=== PATIENT | female | born 1950 | race American Indian/Alaskan Native ===

== ENCOUNTER 2016-10-07 13:29 | Emergency (ER) | payer OTHER, MEDICARE ==
[2016-10-07] MEDS ORDERED: Sodium Chloride 0.9% 10 ML Syringe FLUSH PRN (13:45)
--- NOTE | 2016-10-07 13:47 | EDM.PDOC ---
ED HPI GENERAL MEDICAL PROBLEM - General Stated Complaint: BLACKING OUT Time Seen by Provider: 10/07/16 13:45 Source of Information: Reports: Patient History Limitations: Reports: No Limitations - History of Present Illness INITIAL COMMENTS - FREE TEXT/NARRATIVE: 66 yo female presents with heart rhythm irregularity that causes her to feel faint. States that her heart is racing sometimes. Presents with irregular heart rate of 80s-115s. denies vomiting but c/o nausea. States that she woke this am with this at about 4am. Pt reports taking 2 doses of her Sotalol this am as well as her other medication. C/o having similar symptoms over the past few weeks however she did not want to be seen because she would be transferred to [place]. Refuses today to be transferred to [place] because she now has a job. Denies pain or shortness of breath currently. Onset: Today Onset Time: 04:00 Duration: Intermittent Worsens with: Reports: Movement Context: Reports: Activity Associated Symptoms: Reports: No Other Symptoms Treatments MANAGER LVN: Reports: Other Medication(s) (beta nilo) Right Upper Chest Pain Score (Numeric/FACES): 4 - Related Data Allergies Allergy/AdvReac Type Severity Reaction Status Date / Time codeine Allergy Cannot Verified 10/07/16 13:49 Remember Macrolide Antibiotics Allergy Cannot Verified 10/07/16 13:49 Remember Quinolones Allergy Cannot Verified 10/07/16 13:49 Remember Home Meds: Home Meds Albuterol Sulfate 1 dose INH Q4H PRN 08/30/14 [History] Albuterol [Proventil HFA] 2 puff INH Q4H PRN 08/30/14 [History] Alendronate Sodium [Alendronate] 1 tab PO WEEKLY 08/30/14 [History] Formoterol/Mometasone [Dulera 100 MCG/5 MCG] 2 puff INH BID 08/30/14 [History] Rivaroxaban [Xarelto] 1 tab PO DAILY 08/30/14 [History] Aclidinium [place] [Tudorza Pressair] 1 puff INH BID 02/28/16 [History] Fluticasone Propionate [Flonase] 1 spray NASBOTH ASDIRECTED 02/28/16 [History] Omeprazole 20 mg PO DAILY 02/28/16 [History] Simvastatin [Zocor] 10 mg PO DAILY 02/28/16 [History] Sotalol HCl [Sotalol] 80 mg PO BID 02/28/16 [History] diphenhydrAMINE [Benadryl] 50 mg PO ASDIRECTED 02/28/16 [History] Past Medical History HEENT History: Reports: Impaired Vision Other HEENT History: WEARS CORRECTIVE LENS Cardiovascular History: Reports: Afib, Heart Murmur, High Cholesterol Other Cardiovascular History: ABDOMINAL AORTIC ANEURYSM. PULMONARY HYPERTENSION. DIASTOLIC DYSFUNCTION. QT PROLONGATION. 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: Musculoskeletal History: Reports: Osteoporosis Neurological History: Reports: None Psychiatric History: Reports: None Endocrine/Metabolic History: Reports: Osteoporosis Hematologic History: Reports: None Immunologic History: Reports: None Oncologic (Cancer) History: Reports: None Dermatologic History: Reports: None - Past Surgical History Female Surgical History: Reports: Section Social & Family History - Tobacco Use Smoking Status *Q: Never Smoker Years of Tobacco use: 45 Packs/Tins Daily: 2 Month Tobacco Last Used: 03/17/2007 Second Hand Smoke Exposure: No - Alcohol Use Days Per Week of Alcohol Use: 0 - Recreational Drug Use Recreational Drug Use: No - Living Situation & Occupation Living situation: Reports: with Family Occupation: Employed ED ROS GENERAL - Review of Systems Review Of Systems: ROS reveals no pertinent complaints other than HPI. ED EXAM, GENERAL - Physical Exam Exam: See Below Exam Limited By: No Limitations General Appearance: Alert, WD/WN, No Apparent Distress Eye Exam: Bilateral Eye: Normal Inspection, PERRL Nose: Normal Inspection, Normal Mucosa, No Blood Throat/Mouth: Normal Inspection, Normal Lips, Normal Teeth, Normal Gums, Normal Oropharynx, Normal Voice, No Airway Compromise Head: Atraumatic, Normocephalic Neck: Normal Inspection, Supple, Non-Tender, Full Range of Motion Respiratory/Chest: No Respiratory Distress, Lungs Clear, Normal Breath Sounds, No Accessory Muscle Use, Chest Non-Tender Cardiovascular: Normal Peripheral Pulses, No Edema, No Gallop, No JVD, No Murmur , No Rub, Tachycardia, Irregularly Irregular Peripheral Pulses: 4+: Radial (L), Radial (R), Posterior Tibial (L), Posterior Tibial (R), Dorsalis Pedis (L), Dorsalis Pedis (R) GI/Abdominal: Normal Bowel Sounds, Soft, Non-Tender, No Organomegaly, No Distention, No Abnormal Bruit, No Mass Extremities: Normal Inspection, Normal Range of Motion, Non-Tender, Normal Capillary Refill, No Pedal Edema Neurological: Alert, Oriented, CN II-XII Intact, Normal Cognition, No Motor/ Sensory Deficits Skin Exam: Warm, Dry, Intact, Normal Color, No Rash Lymphatic: No Adenopathy Course - Vital Signs Last Recorded V/S: Last Vital Signs Temp 97.3 F 10/07/16 13:30 Pulse 121 H 10/07/16 15:15 Resp 16 10/07/16 13:30 BP 101/58 L 10/07/16 15:15 Pulse Ox 93 L 10/07/16 13:30 - Orders/Labs/Meds Orders: Active Orders 24 hr Category Date Time Status Cardiac Monitoring [RC] . DIRECTED Care 10/07/16 13:45 Active EKG Documentation Completion [RC] STAT Care 10/07/16 13:46 Active Sodium Chloride 0.9% [Normal Saline] 500 ml Med 10/07/16 14:30 Active IV .BOLUS Sodium Chloride 0.9% [Normal Saline] 500 ml Med 10/07/16 14:45 Active IV ASDIRECTED Sodium Chloride 0.9% [Saline Flush] Med 10/07/16 13:45 Active 10 ml FLUSH ASDIRECTED PRN Saline Lock Insert [OM.PC] Stat Oth 10/07/16 13:45 Ordered Medication Orders Sodium Chloride (Normal Saline) 500 mls @ 999 mls/hr IV .BOLUS DOTTIE Last Admin: 10/07/16 14:26 Dose: 999 mls/hr Sodium Chloride (Normal Saline) 500 mls @ 75 mls/hr IV ASDIRECTED DOTTIE Last Admin: 10/07/16 14:58 Dose: 75 mls/hr Sodium Chloride (Saline Flush) 10 ml FLUSH ASDIRECTED PRN PRN Reason: Keep Vein Open Last Admin: 10/07/16 14:00 Dose: 10 ml Labs: Laboratory Tests 10/07/16 10/07/16 10/07/16 Range/Units 13:49 13:49 13:49 WBC 9.1 (5.0-10.0) 10^3/uL RBC 4.41 (4.2-5.4) 10^6/uL Hgb 13.4 (12.0-16.0) g/dL Hct 40.8 (37.0-47.0) % MCV 92.5 (80-100) fL MCH 30.4 (27.0-34.0) pg MCHC 32.8 L (33.0-35.0) g/dL Plt Count 259 (150-450) 10^3/uL Neut % (Auto) 68.3 (42.2-75.2) % Lymph % (Auto) 21.4 (20.5-50.1) % [place] % (Auto) 8.1 H (2-8) % Eos % (Auto) 1.8 (1.0-3.0) % Baso % (Auto) 0.4 (0.0-1.0) % PT 11.5 (9.0-12.0) SEC INR 1.1 (0.9-1.2) Sodium 139 (135-145) mmol/L Potassium 4.2 (3.6-5.0) mmol/L Chloride 109 (101-111) mmol/L Carbon Dioxide 20.0 L (21.0-31.0) mmol/L Anion Gap 14.2 BUN 13 (7-18) mg/dL Creatinine 0.7 (0.6-1.3) mg/dL Est Cr Clr Drug Dosing 74.41 mL/min Estimated GFR (MDRD) > 60 Glucose 100 (74-105) mg/dL Calcium 9.2 (8.4-10.2) mg/dl Creatine Kinase (26-174) IU/L Creatine Kinase Index (0-2.4) % CK-MB (CK-2) (0.4-4.7) ng/mL Troponin I < 0.02 (0.00-0.02) ng/ml 10/07/16 Range/Units 13:49 WBC (5.0-10.0) 10^3/uL RBC (4.2-5.4) 10^6/uL Hgb (12.0-16.0) g/dL Hct (37.0-47.0) % MCV (80-100) fL MCH (27.0-34.0) pg MCHC (33.0-35.0) g/dL Plt Count (150-450) 10^3/uL Neut % (Auto) (42.2-75.2) % Lymph % (Auto) (20.5-50.1) % [place] % (Auto) (2-8) % Eos % (Auto) (1.0-3.0) % Baso % (Auto) (0.0-1.0) % PT (9.0-12.0) SEC INR (0.9-1.2) Sodium (135-145) mmol/L Potassium (3.6-5.0) mmol/L Chloride (101-111) mmol/L Carbon Dioxide (21.0-31.0) mmol/L Anion Gap BUN (7-18) mg/dL Creatinine (0.6-1.3) mg/dL Est Cr Clr Drug Dosing mL/min Estimated GFR (MDRD) Glucose (74-105) mg/dL Calcium (8.4-10.2) mg/dl Creatine Kinase 28 (26-174) IU/L Creatine Kinase Index 4.3 H (0-2.4) % CK-MB (CK-2) 1.20 (0.4-4.7) ng/mL Troponin I (0.00-0.02) ng/ml Meds: Medications Generic Name Dose Route Start Last Admin Trade Name Freq PRN Reason Stop Dose Admin Sodium Chloride 500 mls @ 999 mls/hr 10/07/16 14:30 10/07/16 14:26 Normal Saline IV 999 mls/hr .BOLUS DOTTIE Administration Sodium Chloride 500 mls @ 75 mls/hr 10/07/16 14:45 10/07/16 14:58 Normal Saline IV 75 mls/hr ASDIRECTED DOTTIE Administration Sodium Chloride 10 ml 10/07/16 13:45 10/07/16 14:00 Saline Flush FLUSH 10 ml ASDIRECTED PRN Administration Keep Vein Open Discontinued Medications Generic Name Dose Route Start Last Admin Trade Name Freq PRN Reason Stop Dose Admin Metoprolol Tartrate 5 mg 10/07/16 14:15 Lopressor IVPUSH 10/07/16 14:16 ONETIME ONE Metoprolol Tartrate 2.5 mg 10/07/16 15:12 10/07/16 15:15 Lopressor IVPUSH 10/07/16 15:13 2.5 mg ONETIME ONE Administration - Re-Assessments/Exams Free Text/Narrative Re-Assessment/Exam: 10/07/16 14:45 Lab reveals no acute cardiac injury. Patient with hypertension and metoprolol held currently until normotensive. IV fluids given. 10/07/16 15:12 Patient states that she doesnt feel her heart racing. Manual pulse check reveal heart rate of 70 however continues with irregularity. Hypotension resolved. 10/07/16 15:51 pulse remains around 60's- 70's and irregular. Normotensive at 111 systolically currenlty. Pt eating lunch with no nausea complaints. Will DC home Departure - Departure Time of Disposition: 15:52 Disposition: Home, Self-Care 01 Condition: Good Clinical Impression: Chronic a-fib Instructions: Atrial Fibrillation Forms: ED Department Discharge Additional Instructions: Continue to take your medication as prescribed. Follow up with your fresh food manager NICHOLAS for re-evaluation of you dosage. Return for any worsening symptoms. - My Orders Last 24 Hours: My Active Orders 10/07/16 13:45 Cardiac Monitoring [RC] . DIRECTED Sodium Chloride 0.9% [Saline Flush] 10 ml FLUSH ASDIRECTED PRN Saline Lock Insert [OM.PC] Stat 10/07/16 13:46 EKG Documentation Completion [RC] STAT 10/07/16 14:30 Sodium Chloride 0.9% [Normal Saline] 500 ml IV .BOLUS 10/07/16 14:45 Sodium Chloride 0.9% [Normal Saline] 500 ml IV ASDIRECTED - Assessment/Plan Last 24 Hours: My Active Orders 10/07/16 13:45 Cardiac Monitoring [RC] . DIRECTED Sodium Chloride 0.9% [Saline Flush] 10 ml FLUSH ASDIRECTED PRN Saline Lock Insert [OM.PC] Stat 10/07/16 13:46 EKG Documentation Completion [RC] STAT 10/07/16 14:30 Sodium Chloride 0.9% [Normal Saline] 500 ml IV .BOLUS 10/07/16 14:45 Sodium Chloride 0.9% [Normal Saline] 500 ml IV ASDIRECTED
[2016-10-07] MEDS ORDERED: Metoprolol Tartrate 5 MG/5 ML SDV IVPUSH ONE ×2 (14:15→15:12)
[2016-10-07 14:17] LABS: CHLORIDE,CL 109 mmol/L (101-111); SODIUM,NA 139 mmol/L (135-145)
--- NOTE | 2016-10-07 14:22 | CR ---
Clinical history: 66-year-old female chest pain Interpretation: Increased cardiac size since to April 2012 comparison film i.e. new. EKG? No cephalization of vascular flow, new signs of alveolar edema or dependent pleural fluid accumulati on. Chronic bullous change right lung apex and some lower lobe atelectasis but no new lung mass, hilar l ymphadenopathy or focal lobar pneumonia. No pneumothorax. CONCLUSION: Mild cardiomegaly. No current signs of heart failure or lobar pneumonia.
[2016-10-07] MEDS ORDERED: Sodium Chloride 0.9% 500 ML IV SCH ×2 (14:30→14:45)
[2016-10-07 15:17] VITALS: BP 101/58
--- NOTE | 2016-10-09 10:00 | EKG ---
10/07/2016 - CONSTANZA SAPP - EKG shows atrial fibrillation, rapid ventricular response. Heart rate is 109 per minute. [facility] /[id number]
== END 2016-10-07 17:22 | disposition home or self-care (01) ==
LOC: DL.ED 13:29
DX: I48.2 Chronic atrial fibrillation (principal); E78.00 Pure hypercholesterolemia, unspecified; K21.9 Gastro-esophageal reflux disease without esophagitis; J44.9 Chronic obstructive pulmonary disease, unspecified; M81.0 Age-related osteoporosis without current pathological fracture; Z88.8 Allergy status to other drugs, medicaments and biological substances; Z88.5 Allergy status to narcotic agent
CPT/HCPCS: 36415; 71010; 80048; 82550; 82553; 84484; 85025; 85610; 93005; 96365; 96366; 96375; 99285; J7040; J7050; J3490

== ENCOUNTER 2016-11-08 01:10 | Emergency (ER) | payer OTHER, MEDICARE ==
[2016-11-08] MEDS ORDERED: Metoprolol Tartrate 5 MG/5 ML SDV IVPUSH ONE (01:33)
[2016-11-08] MEDS ORDERED: Sodium Chloride 0.9% 1,000 ML IV ONE (01:36)
--- NOTE | 2016-11-08 01:39 | EDM.PDOC ---
ED HPI GENERAL MEDICAL PROBLEM - General Chief Complaint: Cardiovascular Problem Stated Complaint: NOT FEELING WELL Time Seen by Provider: 11/08/16 01:36 Source of Information: Reports: Patient History Limitations: Reports: No Limitations - History of Present Illness INITIAL COMMENTS - FREE TEXT/NARRATIVE: states everything started in 2008 from COPD then developed irreg heart was referred to Dr Astrid Lundberg with Rx and has yearly f/u next one next week. been ok till last month was here and given IV Rx problem went away but didn't want [facility] transfer. tonight developed palpitation sob some pain chest tightness & pain going up both jaws which she didn't have last time. Bilateral Lower Face Pain Score (Numeric/FACES): 3 - Related Data Allergies Allergy/AdvReac Type Severity Reaction Status Date / Time codeine Allergy Cannot Verified 11/08/16 01:37 Remember Macrolide Antibiotics Allergy Cannot Verified 11/08/16 01:37 Remember Quinolones Allergy Cannot Verified 11/08/16 01:37 Remember Home Meds: Home Meds Albuterol Sulfate 1 dose INH Q4H PRN 08/30/14 [History] Albuterol [Proventil HFA] 2 puff INH Q4H PRN 08/30/14 [History] Alendronate Sodium [Alendronate] 1 tab PO WEEKLY 08/30/14 [History] Formoterol/Mometasone [Dulera 100 MCG/5 MCG] 2 puff INH BID 08/30/14 [History] Rivaroxaban [Xarelto] 1 tab PO DAILY 08/30/14 [History] Aclidinium [place] [Tudorza Pressair] 1 puff INH BID 02/28/16 [History] Fluticasone Propionate [Flonase] 1 spray NASBOTH ASDIRECTED 02/28/16 [History] Simvastatin [Zocor] 10 mg PO DAILY 02/28/16 [History] Sotalol HCl [Sotalol] 80 mg PO BID 02/28/16 [History] diphenhydrAMINE [Benadryl] 50 mg PO ASDIRECTED 02/28/16 [History] Past Medical History HEENT History: Reports: Impaired Vision Other HEENT History: WEARS CORRECTIVE LENS Cardiovascular History: Reports: Afib, Heart Murmur, High Cholesterol Other Cardiovascular History: ABDOMINAL AORTIC ANEURYSM. PULMONARY HYPERTENSION. DIASTOLIC DYSFUNCTION. QT PROLONGATION. 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: Musculoskeletal History: Reports: Osteoporosis Neurological History: Reports: None Psychiatric History: Reports: None Endocrine/Metabolic History: Reports: Osteoporosis Hematologic History: Reports: None Immunologic History: Reports: None Oncologic (Cancer) History: Reports: None Dermatologic History: Reports: None - Past Surgical History Female Surgical History: Reports: Section Social & Family History - Tobacco Use Smoking Status *Q: Former Smoker Years of Tobacco use: 45 Packs/Tins Daily: 2 Used Tobacco, but Quit: Yes Month Tobacco Last Used: 03/17/2007 Second Hand Smoke Exposure: No - Caffeine Use Caffeine Use: Reports: Coffee, Soda - Alcohol Use Days Per Week of Alcohol Use: 0 - Recreational Drug Use Recreational Drug Use: No - Living Situation & Occupation Living situation: Reports: with Family Occupation: Employed ED ROS GENERAL - Review of Systems Review Of Systems: ROS reveals no pertinent complaints other than HPI. ED EXAM, GENERAL - Physical Exam Exam: See Below Exam Limited By: No Limitations General Appearance: Alert, WD/WN, No Apparent Distress, Other (upset) Ears: Hearing Grossly Normal Throat/Mouth: Normal Voice, No Airway Compromise Head: Atraumatic Neck: Non-Tender, Full Range of Motion Respiratory/Chest: No Respiratory Distress Cardiovascular: Irregularly Irregular GI/Abdominal: Soft, Non-Tender Neurological: Alert, Oriented, Normal Cognition, Normal Gait, No Motor/Sensory Deficits Psychiatric: Flat Affect Skin Exam: Warm, Dry, Normal Color Lymphatic: No Adenopathy Course - Vital Signs Last Recorded V/S: Last Vital Signs Temp 36.4 C 11/08/16 01:15 Pulse 94 11/08/16 03:03 Resp 20 11/08/16 03:03 BP 113/55 L 11/08/16 03:03 Pulse Ox 95 11/08/16 03:03 - Orders/Labs/Meds Orders: Active Orders 24 hr Category Date Time Status EKG 12 Lead [EKG Documentation Completion] [RC] STAT Care 11/08/16 01:26 Active Sodium Chloride 0.9% [Normal Saline] 1,000 ml Med 11/08/16 01:36 Active IV .BOLUS Medication Orders Sodium Chloride (Normal Saline) 1,000 mls @ 555 mls/hr IV .BOLUS ONE Stop: 11/08/16 03:24 Last Admin: 11/08/16 01:45 Dose: 555 mls/hr Labs: Laboratory Tests 11/08/16 11/08/16 Range/Units 01:20 01:20 WBC 8.1 (5.0-10.0) 10^3/uL RBC 4.45 (4.2-5.4) 10^6/uL Hgb 13.6 (12.0-16.0) g/dL Hct 40.7 (37.0-47.0) % MCV 91.5 (80-100) fL MCH 30.6 (27.0-34.0) pg MCHC 33.4 (33.0-35.0) g/dL Plt Count 257 (150-450) 10^3/uL Neut % (Auto) 54.3 (42.2-75.2) % Lymph % (Auto) 31.6 (20.5-50.1) % [place] % (Auto) 10.1 H (2-8) % Eos % (Auto) 3.5 H (1.0-3.0) % Baso % (Auto) 0.5 (0.0-1.0) % Sodium 141 (135-145) mmol/L Potassium 3.7 (3.6-5.0) mmol/L Chloride 108 (101-111) mmol/L Carbon Dioxide 22.0 (21.0-31.0) mmol/L Anion Gap 14.7 BUN 14 (7-18) mg/dL Creatinine 0.7 (0.6-1.3) mg/dL Est Cr Clr Drug Dosing 74.01 mL/min Estimated GFR (MDRD) > 60 BUN/Creatinine Ratio 20.00 Glucose 106 H (74-105) mg/dL Calcium 9.4 (8.4-10.2) mg/dl Total Bilirubin 0.8 (0.2-1.0) mg/dL AST 17 (10-42) IU/L ALT 14 (10-60) IU/L Alkaline Phosphatase 66 (42-121) IU/L Troponin I < 0.02 (0.00-0.02) ng/ml Total Protein 6.9 (6.7-8.2) g/dl Albumin 4.1 (3.2-5.5) g/dl Globulin 2.8 Albumin/Globulin Ratio 1.46 Meds: Medications Generic Name Dose Route Start Last Admin Trade Name Desean PRN Reason Stop Dose Admin Sodium Chloride 1,000 mls @ 555 mls/hr 11/08/16 01:36 11/08/16 01:45 Normal Saline IV 11/08/16 03:24 555 mls/hr .BOLUS ONE Administration Discontinued Medications Generic Name Dose Route Start Last Admin Trade Name Desean PRN Reason Stop Dose Admin Metoprolol Tartrate 2.5 mg 11/08/16 01:33 11/08/16 02:42 Lopressor IVPUSH 11/08/16 01:34 2.5 mg ONETIME ONE Administration - Re-Assessments/Exams Free Text/Narrative Re-Assessment/Exam: 11/08/16 02:25 re-exam;jaw pain gone but can still feel heart going irreg. 11/08/16 03:[address] Yap @ who kindly accepted Pt Departure - Departure Time of Disposition: 03:16 Disposition: DC/Tfer to Acute Hospital 02 Reason for Transfer *Q: Other Condition: Fair Clinical Impression: Palpitations, Atrial fibrillation with RVR Forms: Interfacility Transfer EMTALA - My Orders Last 24 Hours: My Active Orders 11/08/16 01:26 EKG 12 Lead [EKG Documentation Completion] [RC] STAT 11/08/16 01:36 Sodium Chloride 0.9% [Normal Saline] 1,000 ml IV .BOLUS - Assessment/Plan Last 24 Hours: My Active Orders 11/08/16 01:26 EKG 12 Lead [EKG Documentation Completion] [RC] STAT 11/08/16 01:36 Sodium Chloride 0.9% [Normal Saline] 1,000 ml IV .BOLUS
[2016-11-08 01:48] LABS: CHLORIDE,CL 108 mmol/L (101-111); SODIUM,NA 141 mmol/L (135-145)
[2016-11-08 03:04] VITALS: BP 113/55
[2016-11-08] MEDS ORDERED: Sodium Chloride 0.9% 1,000 ML IV SCH (03:45)
--- NOTE | 2016-11-11 09:27 | EKG ---
11/08/2016- CONSTANZA SAPP - EKG per my reading shows atrial fibrillation at the rate of 102. [facility] /[id number]
== END 2016-11-08 03:53 ==
LOC: DL.ED 01:10
DX: I48.91 Unspecified atrial fibrillation (principal); H54.7 Unspecified visual loss; E78.00 Pure hypercholesterolemia, unspecified; K21.9 Gastro-esophageal reflux disease without esophagitis; M81.0 Age-related osteoporosis without current pathological fracture; Z88.5 Allergy status to narcotic agent; Z88.8 Allergy status to other drugs, medicaments and biological substances; Z79.899 Other long term (current) drug therapy
CPT/HCPCS: 36415; 80053; 84484; 85025; 93005; 96361; 96374; 99285; J7030; J3490

== ENCOUNTER 2016-12-15 23:52 | Emergency (ER) | payer OTHER, MEDICARE ==
[2016-12-16] MEDS ORDERED: Aspirin 81 MG Tab.Chew PO ONE (00:18)
--- NOTE | 2016-12-16 00:22 | EDM.PDOC ---
ED HPI GENERAL MEDICAL PROBLEM - General Chief Complaint: Cardiovascular Problem Stated Complaint: HEART POUNDING Time Seen by Provider: 12/16/16 00:15 Source of Information: Reports: Patient History Limitations: Reports: No Limitations - History of Present Illness INITIAL COMMENTS - FREE TEXT/NARRATIVE: ED with c/o feeling like heart racing, had chest pain radiating to jaw on awakening at 2300. Quality: Reports: Ache, Dull, Sharp Associated Symptoms: Reports: Chest Pain, Shortness of Breath Head Pain Score (Numeric/FACES): 8 - Related Data Allergies Allergy/AdvReac Type Severity Reaction Status Date / Time codeine Allergy Cannot Verified 12/16/16 00:05 Remember Macrolide Antibiotics Allergy Cannot Verified 12/16/16 00:05 Remember Quinolones Allergy Cannot Verified 12/16/16 00:05 Remember Home Meds: Home Meds Albuterol Sulfate 1 dose INH Q4H PRN 08/30/14 [History] Albuterol [Proventil HFA] 2 puff INH Q4H PRN 08/30/14 [History] Alendronate Sodium [Alendronate] 1 tab PO WEEKLY 08/30/14 [History] Formoterol/Mometasone [Dulera 100 MCG/5 MCG] 2 puff INH BID 08/30/14 [History] Rivaroxaban [Xarelto] 1 tab PO DAILY 08/30/14 [History] Aclidinium [place] [Tudorza Pressair] 1 puff INH BID 02/28/16 [History] Fluticasone Propionate [Flonase] 1 spray NASBOTH ASDIRECTED 02/28/16 [History] Simvastatin [Zocor] 10 mg PO DAILY 02/28/16 [History] Sotalol HCl [Sotalol] 80 mg PO BID 02/28/16 [History] diphenhydrAMINE [Benadryl] 50 mg PO ASDIRECTED 02/28/16 [History] Magnesium 400 mg PO DAILY 12/16/16 [History] Past Medical History HEENT History: Reports: Impaired Vision Other HEENT History: WEARS CORRECTIVE LENS Cardiovascular History: Reports: Afib, Heart Murmur, High Cholesterol Other Cardiovascular History: ABDOMINAL AORTIC ANEURYSM. PULMONARY HYPERTENSION. DIASTOLIC DYSFUNCTION. QT PROLONGATION. 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: Musculoskeletal History: Reports: Osteoporosis Neurological History: Reports: None Psychiatric History: Reports: None Endocrine/Metabolic History: Reports: Osteoporosis Hematologic History: Reports: None Immunologic History: Reports: None Oncologic (Cancer) History: Reports: None Dermatologic History: Reports: None - Infectious Disease History Infectious Disease History: Reports: None - Past Surgical History Female Surgical History: Reports: Section Social & Family History - Family History Family Medical History: Noncontributory - Tobacco Use Smoking Status *Q: Never Smoker Years of Tobacco use: 45 Packs/Tins Daily: 2 Used Tobacco, but Quit: Yes Month Tobacco Last Used: 03/17/2007 Second Hand Smoke Exposure: No - Caffeine Use Caffeine Use: Reports: None - Alcohol Use Days Per Week of Alcohol Use: 0 - Recreational Drug Use Recreational Drug Use: No - Living Situation & Occupation Living situation: Reports: with Family Occupation: Employed ED ROS GENERAL - Review of Systems Review Of Systems: See Below Constitutional: Reports: No Symptoms HEENT: Reports: No Symptoms Respiratory: Reports: Shortness of Breath Cardiovascular: Reports: Chest Pain, Palpitations GI/Abdominal: Reports: No Symptoms : Reports: No Symptoms Musculoskeletal: Reports: No Symptoms Skin: Reports: No Symptoms Neurological: Reports: No Symptoms ED EXAM, GENERAL - Physical Exam Exam: See Below Exam Limited By: No Limitations General Appearance: Alert, Moderate Distress Eye Exam: Bilateral Eye: EOMI Nose: Normal Inspection Throat/Mouth: Normal Inspection Head: Atraumatic Neck: Normal Inspection, Non-Tender, Full Range of Motion. No: Carotid Bruit, Lymphadenopathy (L), Lymphadenopathy (R) Respiratory/Chest: No Respiratory Distress, Lungs Clear Cardiovascular: Tachycardia, Irregularly Irregular. No: JVD GI/Abdominal: Normal Bowel Sounds Extremities: Normal Inspection Neurological: Alert, Oriented, Normal Cognition Psychiatric: Normal Affect Skin Exam: Warm, Dry, Intact, Normal Color. No: Diaphoretic Course - Vital Signs Last Recorded V/S: Last Vital Signs Temp 97.2 F 12/16/16 02:15 Pulse 118 H 12/16/16 01:54 Resp 16 12/16/16 01:54 BP 89/60 L 12/16/16 01:54 Pulse Ox 100 12/16/16 01:54 - Orders/Labs/Meds Labs: Laboratory Tests 12/16/16 12/16/16 12/16/16 Range/Units 00:12 00:12 00:12 WBC 8.0 (5.0-10.0) 10^3/uL RBC 4.45 (4.2-5.4) 10^6/uL Hgb 13.5 (12.0-16.0) g/dL Hct 41.4 (37.0-47.0) % MCV 93.0 (80-100) fL MCH 30.3 (27.0-34.0) pg MCHC 32.6 L (33.0-35.0) g/dL Plt Count 284 (150-450) 10^3/uL Neut % (Auto) 73.1 (42.2-75.2) % Lymph % (Auto) 17.1 L (20.5-50.1) % [place] % (Auto) 8.1 H (2-8) % Eos % (Auto) 1.5 (1.0-3.0) % Baso % (Auto) 0.2 (0.0-1.0) % PT 9.6 (9.0-12.0) SEC INR 1.0 (0.9-1.2) Sodium 137 (135-145) mmol/L Potassium 4.3 (3.6-5.0) mmol/L Chloride 105 (101-111) mmol/L Carbon Dioxide 22.0 (21.0-31.0) mmol/L Anion Gap 14.3 BUN 18 (7-18) mg/dL Creatinine 0.7 (0.6-1.3) mg/dL Est Cr Clr Drug Dosing TNP Estimated GFR (MDRD) > 60 BUN/Creatinine Ratio 25.71 Glucose 135 H (74-105) mg/dL Calcium 9.2 (8.4-10.2) mg/dl Magnesium (1.8-2.5) mg/dL Total Bilirubin 1.1 H (0.2-1.0) mg/dL AST 18 (10-42) IU/L ALT 14 (10-60) IU/L Alkaline Phosphatase 66 (42-121) IU/L CK-MB (CK-2) (0.4-4.7) ng/mL Troponin I < 0.02 (0.00-0.02) ng/ml B-Natriuretic Peptide 325 H (0-100) pg/ml Total Protein 6.7 (6.7-8.2) g/dl Albumin 3.9 (3.2-5.5) g/dl Globulin 2.8 Albumin/Globulin Ratio 1.39 Urine Color (YELLOW) Urine Appearance (CLEAR) Urine pH (5.0-9.0) Ur Specific [place] (1.005-1.030) Urine Protein (NEGATIVE) Urine Glucose (UA) (NEGATIVE) Urine Ketones (NEGATIVE) Urine Occult Blood (NEGATIVE) Urine Nitrite (NEGATIVE) Urine Bilirubin (NEGATIVE) Urine Urobilinogen (0.2-1.0) mg/dL Ur Leukocyte Esterase (NEGATIVE) Urine RBC /HPF Urine WBC (0-5/HPF) /HPF Ur Epithelial Cells /HPF Urine Bacteria (0-FEW/HPF) /HPF 12/16/16 12/16/16 12/16/16 Range/Units 00:12 00:12 01:30 WBC (5.0-10.0) 10^3/uL RBC (4.2-5.4) 10^6/uL Hgb (12.0-16.0) g/dL Hct (37.0-47.0) % MCV (80-100) fL MCH (27.0-34.0) pg MCHC (33.0-35.0) g/dL Plt Count (150-450) 10^3/uL Neut % (Auto) (42.2-75.2) % Lymph % (Auto) (20.5-50.1) % [place] % (Auto) (2-8) % Eos % (Auto) (1.0-3.0) % Baso % (Auto) (0.0-1.0) % PT (9.0-12.0) SEC INR (0.9-1.2) Sodium (135-145) mmol/L Potassium (3.6-5.0) mmol/L Chloride (101-111) mmol/L Carbon Dioxide (21.0-31.0) mmol/L Anion Gap BUN (7-18) mg/dL Creatinine (0.6-1.3) mg/dL Est Cr Clr Drug Dosing Estimated GFR (MDRD) BUN/Creatinine Ratio Glucose (74-105) mg/dL Calcium (8.4-10.2) mg/dl Magnesium 2.2 (1.8-2.5) mg/dL Total Bilirubin (0.2-1.0) mg/dL AST (10-42) IU/L ALT (10-60) IU/L Alkaline Phosphatase (42-121) IU/L CK-MB (CK-2) 1.30 (0.4-4.7) ng/mL Troponin I (0.00-0.02) ng/ml B-Natriuretic Peptide (0-100) pg/ml Total Protein (6.7-8.2) g/dl Albumin (3.2-5.5) g/dl Globulin Albumin/Globulin Ratio Urine Color Light yellow (YELLOW) Urine Appearance Slightly cloudy (CLEAR) Urine pH 7.0 (5.0-9.0) Ur Specific [place] 1.010 (1.005-1.030) Urine Protein Negative (NEGATIVE) Urine Glucose (UA) Negative (NEGATIVE) Urine Ketones Negative (NEGATIVE) Urine Occult Blood Negative (NEGATIVE) Urine Nitrite Negative (NEGATIVE) Urine Bilirubin Negative (NEGATIVE) Urine Urobilinogen 0.2 (0.2-1.0) mg/dL Ur Leukocyte Esterase Negative (NEGATIVE) Urine RBC 0-5 /HPF Urine WBC 0-5 (0-5/HPF) /HPF Ur Epithelial Cells Many H /HPF Urine Bacteria Few (0-FEW/HPF) /HPF Meds: Medications Discontinued Medications Generic Name Dose Route Start Last Admin Trade Name Freq PRN Reason Stop Dose Admin Aspirin 324 mg 12/16/16 00:18 12/16/16 00:23 Aspirin PO 12/16/16 00:19 324 mg ONETIME ONE Administration Sodium Chloride 1,000 mls @ 200 mls/hr 12/16/16 00:32 12/16/16 01:15 Normal Saline IV 12/16/16 05:31 200 mls/hr .BOLUS ONE Infusion Metoprolol Tartrate 2.5 mg 12/16/16 00:41 12/16/16 02:57 Lopressor IVPUSH 12/16/16 00:42 Not Given ONETIME ONE Departure - Departure Time of Disposition: 02:45 Disposition: DC/Tfer to Acute Hospital 02 Reason for Transfer *Q: Other Condition: Undetermined Clinical Impression: Atrial fibrillation with RVR Referrals: PCP,Unobtain [Primary Care Provider] - Forms: ED Department Discharge
[2016-12-16] MEDS ORDERED: Sodium Chloride 0.9% 1,000 ML IV ONE (00:32)
[2016-12-16] MEDS ORDERED: Metoprolol Tartrate 5 MG/5 ML SDV IVPUSH ONE (00:41)
[2016-12-16 00:48] LABS: CHLORIDE,CL 105 mmol/L (101-111); SODIUM,NA 137 mmol/L (135-145)
[2016-12-16 01:55] VITALS: BP 89/60
--- NOTE | 2016-12-30 07:39 | EKG ---
12/15/2016- CONSTANZA SAPP - This is a standard 12-lead EKG showing atrial fibrillation with a rate of 133 beats per minute. No significant ST-T changes. Normal QRS duration. [facility] /[id number]
== END 2016-12-16 02:46 ==
LOC: DL.ED 23:52
DX: I48.91 Unspecified atrial fibrillation (principal); E78.00 Pure hypercholesterolemia, unspecified; J44.9 Chronic obstructive pulmonary disease, unspecified; K21.9 Gastro-esophageal reflux disease without esophagitis; Z79.899 Other long term (current) drug therapy; Z88.6 Allergy status to analgesic agent; Z88.8 Allergy status to other drugs, medicaments and biological substances
CPT/HCPCS: 36415; 71010; 80053; 81001; 82553; 83735; 83880; 84484; 85025; 85610; 93005; 96360; 96361; 99285; A9270; J7030

== ENCOUNTER 2017-02-23 04:36 | Inpatient (IN) | payer OTHER, MEDICARE ==
[2017-02-23] MEDS ORDERED: methylPREDNISolone Sodium Succinate 125 MG/2 ML SDV IVPUSH ONE (04:38)
[2017-02-23] MEDS ORDERED: Furosemide 40 MG Tab PO ONE (04:38)
[2017-02-23] MEDS ORDERED: Albuterol 0.083% 2.5 MG/3 ML Neb Soln NEB ONE (04:40)
[2017-02-23 04:58] LABS: O2 DELIVERY DEVICE NON REBR MASK
[2017-02-23 05:09] LABS: SODIUM,NA 142 mmol/L (135-145)
--- NOTE | 2017-02-23 05:13 | EDM.PDOC ---
ED HPI GENERAL MEDICAL PROBLEM - General Chief Complaint: Respiratory Problem Stated Complaint: IN BY AMBULANCE-SOB Time Seen by Provider: 02/23/17 04:36 Source of Information: Reports: Patient, EMS History Limitations: Reports: No Limitations - History of Present Illness INITIAL COMMENTS - FREE TEXT/NARRATIVE: ED via [facility] with c/o SOB Sx started , tried to get into clinic Friday and unable. Productive cough clear phlegm. No fever or chills. 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 Albuterol neb enroute by EMS. - Related Data Allergies Allergy/AdvReac Type Severity Reaction Status Date / Time codeine Allergy Cannot Verified 02/23/17 04:58 Remember Macrolide Antibiotics Allergy Cannot Verified 02/23/17 04:58 Remember Quinolones Allergy Cannot Verified 02/23/17 04:58 Remember Home Meds: Home Meds Albuterol Sulfate 1 dose INH Q4H PRN 08/30/14 [History] Albuterol [Proventil HFA] 2 puff INH Q4H PRN 08/30/14 [History] Formoterol/Mometasone [Dulera 100 MCG/5 MCG] 2 puff INH BID 08/30/14 [History] Rivaroxaban [Xarelto] 1 tab PO DAILY 08/30/14 [History] Aclidinium [place] [Tudorza Pressair] 1 puff INH BID 02/28/16 [History] Fluticasone Propionate [Flonase] 1 spray NASBOTH ASDIRECTED 02/28/16 [History] Magnesium 400 mg PO DAILY 12/16/16 [History] Past Medical History HEENT History: Reports: Impaired Vision Other HEENT History: WEARS CORRECTIVE LENS Cardiovascular History: Reports: Afib, Heart Murmur, High Cholesterol Other Cardiovascular History: ABDOMINAL AORTIC ANEURYSM. PULMONARY HYPERTENSION. DIASTOLIC DYSFUNCTION. QT PROLONGATION. 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: Musculoskeletal History: Reports: Osteoporosis Neurological History: Reports: None Psychiatric History: Reports: None Endocrine/Metabolic History: Reports: Osteoporosis Hematologic History: Reports: None Immunologic History: Reports: None Oncologic (Cancer) History: Reports: None Dermatologic History: Reports: None - Infectious Disease History Infectious Disease History: Reports: None - Past Surgical History Female Surgical History: Reports: Section Social & Family History - Family History Family Medical History: Noncontributory - Tobacco Use Smoking Status *Q: Never Smoker Years of Tobacco use: 45 Packs/Tins Daily: 2 Used Tobacco, but Quit: Yes Month Tobacco Last Used: 03/17/2007 Second Hand Smoke Exposure: No - Caffeine Use Caffeine Use: Reports: None - Alcohol Use Days Per Week of Alcohol Use: 0 - Recreational Drug Use Recreational Drug Use: No - Living Situation & Occupation Living situation: Reports: with Family Occupation: Employed ED ROS GENERAL - Review of Systems Review Of Systems: See Below Constitutional: Reports: Fatigue. Denies: Fever, Chills HEENT: Reports: No Symptoms Respiratory: Reports: Shortness of Breath, Wheezing, Cough Cardiovascular: Reports: No Symptoms, Dyspnea on Exertion GI/Abdominal: Reports: No Symptoms Musculoskeletal: Reports: No Symptoms Skin: Reports: No Symptoms Neurological: Reports: No Symptoms ED EXAM, GENERAL - Physical Exam Exam: See Below Exam Limited By: No Limitations General Appearance: Alert, Moderate Distress Eye Exam: Bilateral Eye: EOMI Ears: Normal External Exam, Normal TMs Nose: Normal Inspection, Normal Mucosa Throat/Mouth: Normal Inspection Head: Atraumatic, Normocephalic Neck: Normal Inspection Respiratory/Chest: Respiratory Distress, Decreased Breath Sounds, Wheezing Cardiovascular: Normal Peripheral Pulses, Regular Rate, Rhythm (paced), Other ( trace pedal) GI/Abdominal: Normal Bowel Sounds, Soft Back Exam: Normal Inspection Extremities: Normal Inspection, Normal Range of Motion Neurological: Alert, Oriented, CN II-XII Intact, Normal Cognition Psychiatric: Normal Affect, Normal Mood Skin Exam: Warm, Dry, Intact Course - Vital Signs Last Recorded V/S: Last Vital Signs Temp 98.4 F 02/23/17 04:44 Pulse 77 02/23/17 04:44 Resp 22 H 02/23/17 04:44 BP 120/97 H 02/23/17 04:44 Pulse Ox 95 02/23/17 04:44 - Orders/Labs/Meds Orders: Active Orders 24 hr Category Date Time Status EKG Documentation Completion [RC] URGENT Care 02/23/17 04:31 Active RT Aerosol Therapy [RC] ASDIRECTED Care 02/23/17 04:40 Active CXR [Chest 1V Frontal] [CR] Urgent Exams 02/23/17 04:31 Taken Labs: Laboratory Tests 02/23/17 02/23/17 02/23/17 Range/Units 04:40 04:40 04:40 WBC 10.0 (5.0-10.0) 10^3/uL RBC 4.61 (4.2-5.4) 10^6/uL Hgb 14.1 (12.0-16.0) g/dL Hct 42.7 (37.0-47.0) % MCV 92.6 (80-100) fL MCH 30.6 (27.0-34.0) pg MCHC 33.0 (33.0-35.0) g/dL Plt Count 217 (150-450) 10^3/uL Neut % (Auto) 59.6 (42.2-75.2) % Lymph % (Auto) 19.3 L (20.5-50.1) % [place] % (Auto) 8.9 H (2-8) % Eos % (Auto) 11.5 H (1.0-3.0) % Baso % (Auto) 0.7 (0.0-1.0) % PT (9.0-12.0) SEC INR (0.9-1.2) ABG pH (7.35-7.45) ABG pCO2 (35-45) mmHg ABG pO2 (70-100) mmHg ABG HCO3 (22-26) mmol/L ABG O2 Saturation (95-100) % ABG Base Excess ((-2)-(+3)) mmol/L O2 Delivery Device Sodium 142 (135-145) mmol/L Potassium 3.9 (3.6-5.0) mmol/L Chloride 119 H D (101-111) mmol/L Carbon Dioxide 24.0 (21.0-31.0) mmol/L Anion Gap 2.9 BUN 14 (7-18) mg/dL Creatinine 0.7 (0.6-1.3) mg/dL Est Cr Clr Drug Dosing 74.01 mL/min Estimated GFR (MDRD) > 60 BUN/Creatinine Ratio 20.00 Glucose 110 H (74-105) mg/dL Calcium 9.5 (8.4-10.2) mg/dl Magnesium 1.9 (1.8-2.5) mg/dL Total Bilirubin 0.9 (0.2-1.0) mg/dL AST 25 (10-42) IU/L ALT 22 (10-60) IU/L Alkaline Phosphatase 58 (42-121) IU/L CK-MB (CK-2) 2.00 (0.4-4.7) ng/mL Troponin I < 0.02 (0.00-0.02) ng/ml B-Natriuretic Peptide 106 H (0-100) pg/ml Total Protein 6.9 (6.7-8.2) g/dl Albumin 3.9 (3.2-5.5) g/dl Globulin 3.0 Albumin/Globulin Ratio 1.30 02/23/17 02/23/17 Range/Units 04:40 04:45 WBC (5.0-10.0) 10^3/uL RBC (4.2-5.4) 10^6/uL Hgb (12.0-16.0) g/dL Hct (37.0-47.0) % MCV (80-100) fL MCH (27.0-34.0) pg MCHC (33.0-35.0) g/dL Plt Count (150-450) 10^3/uL Neut % (Auto) (42.2-75.2) % Lymph % (Auto) (20.5-50.1) % [place] % (Auto) (2-8) % Eos % (Auto) (1.0-3.0) % Baso % (Auto) (0.0-1.0) % PT 9.9 (9.0-12.0) SEC INR 1.0 (0.9-1.2) ABG pH 7.46 H (7.35-7.45) ABG pCO2 32 L (35-45) mmHg ABG pO2 51 L (70-100) mmHg ABG HCO3 23.0 (22-26) mmol/L ABG O2 Saturation 88 L (95-100) % ABG Base Excess -1 ((-2)-(+3)) mmol/L O2 Delivery Device Non rebr mask Sodium (135-145) mmol/L Potassium (3.6-5.0) mmol/L Chloride (101-111) mmol/L Carbon Dioxide (21.0-31.0) mmol/L Anion Gap BUN (7-18) mg/dL Creatinine (0.6-1.3) mg/dL Est Cr Clr Drug Dosing mL/min Estimated GFR (MDRD) BUN/Creatinine Ratio Glucose (74-105) mg/dL Calcium (8.4-10.2) mg/dl Magnesium (1.8-2.5) mg/dL Total Bilirubin (0.2-1.0) mg/dL AST (10-42) IU/L ALT (10-60) IU/L Alkaline Phosphatase (42-121) IU/L CK-MB (CK-2) (0.4-4.7) ng/mL Troponin I (0.00-0.02) ng/ml B-Natriuretic Peptide (0-100) pg/ml Total Protein (6.7-8.2) g/dl Albumin (3.2-5.5) g/dl Globulin Albumin/Globulin Ratio Meds: Medications Discontinued Medications Generic Name Dose Route Start Last Admin Trade Name Freq PRN Reason Stop Dose Admin Albuterol 2.5 mg 02/23/17 04:40 02/23/17 05:15 Proventil Neb Soln NEB 02/23/17 04:41 2.5 mg ONETIME ONE Administration Ceftriaxone Sodium 1 gm 02/23/17 06:06 02/23/17 06:16 Rocephin IVPUSH 02/23/17 06:07 1 gm ONETIME ONE Administration Furosemide 40 mg 02/23/17 04:38 02/23/17 05:16 Lasix PO 02/23/17 04:39 40 mg ONETIME ONE Administration Sodium Chloride 1,000 mls @ 999 mls/hr 02/23/17 05:20 02/23/17 05:22 Normal Saline IV 02/23/17 06:20 999 mls/hr .BOLUS ONE Administration Methylprednisolone Sodium Succinate 125 mg 02/23/17 04:38 02/23/17 05:14 Solu-Medrol IVPUSH 02/23/17 04:39 125 mg ONETIME ONE Administration - Radiology Interpretation Free Text/Narrative:: CXR L lower lobe pneumonia. COPD - Re-Assessments/Exams Free Text/Narrative Re-Assessment/Exam: 02/23/17 06:09 Improved airexchange and decreased wheeze with 2nd neb treatment, resting. O2 3L with sats 93-95% Consult Dr. Bran, agree to admit for Pneumonia, COPD, hx atrial fib with recent pacemaker. Departure - Departure Time of Disposition: 06:22 Disposition: Home, Self-Care 01 Condition: Fair Clinical Impression: Chronic a-fib, Hx of cardiac pacemaker Pneumonia Qualifiers: Pneumonia type: due to unspecified organism Laterality: left Lung location: lower lobe of lung Qualified Code(s): J18.1 - Lobar pneumonia, unspecified organism COPD (chronic obstructive pulmonary disease) Qualifiers: COPD type: COPD with acute exacerbation Qualified Code(s): J44.1 - Chronic obstructive pulmonary disease with (acute) exacerbation - Discharge Information Forms: ED Department Discharge - My Orders Last 24 Hours: My Active Orders 02/23/17 04:31 EKG Documentation Completion [RC] URGENT CXR [Chest 1V Frontal] [CR] Urgent 02/23/17 04:40 RT Aerosol Therapy [RC] ASDIRECTED - Assessment/Plan Last 24 Hours: My Active Orders 02/23/17 04:31 EKG Documentation Completion [RC] URGENT CXR [Chest 1V Frontal] [CR] Urgent 02/23/17 04:40 RT Aerosol Therapy [RC] ASDIRECTED
[2017-02-23] MEDS ORDERED: Sodium Chloride 0.9% 1,000 ML IV ONE (05:20)
[2017-02-23 05:25] LABS: O2 SATURATION ARTERIAL 88 % (95-100); PCO2 ARTERIAL 32 mmHg (35-45); PO2 ARTERIAL 51 mmHg (70-100)
[2017-02-23 05:26] LABS: BASE EXCESS ARTERIAL -1 mmol/L ((-2)-(+3))
[2017-02-23 06:06] LABS: CHLORIDE,CL 119 mmol/L (101-111)
[2017-02-23] MEDS ORDERED: cefTRIAXone 1 GM Vial IVPUSH ONE (06:06)
[2017-02-23] MEDS ORDERED: Ondansetron 4 MG Tab.DIS PO PRN (07:04)
[2017-02-23] MEDS ORDERED: Magnesium Hydroxide 400 MG/5 ML Susp 30 ML Cup PO PRN (07:04)
[2017-02-23] MEDS ORDERED: Acetaminophen 325 MG Tab PO PRN (07:04)
[2017-02-23] MEDS ORDERED: Docusate Sodium 100 MG Cap PO PRN (07:04)
[2017-02-23] MEDS ORDERED: Budesonide 0.5 MG/2 ML Neb Susp ONE (07:34)
[2017-02-23] MEDS: Albuterol/Ipratropium 3.0-0.5 MG/3 ML Neb Soln NEB SCH ×3 (07:58→18:30)
[2017-02-23] MEDS ORDERED: Fluticasone Propionate Nasal Spray 16 GM Bottle NASBOTH PRN (09:05)
[2017-02-23] MEDS: Piperacillin/Tazobactam 3.375 GM in Sodium Chloride 0.9% 100 ML IV SCH ×3 (09:56→20:03)
[2017-02-23] MEDS: Rivaroxaban 10 MG Tab PO SCH (09:56)
--- NOTE | 2017-02-23 12:22 | HP ---
CHIEF COMPLAINT: Increasing shortness of breath. HISTORY OF PRESENT ILLNESS: Mrs. Mariela Silva is a 66-year-old female with a medical history significant for hypertension, hyperlipidemia, history of paroxysmal atrial fibrillation and recently underwent radiofrequency ablation of the AV node and also pacemaker placement, history of chronic obstructive pulmonary disease, history of smoking tobacco in the past but currently quit smoking, abdominal aortic aneurysm, hyperlipidemia, pulmonary hypertension, prolonged QT interval, presented to the ER with complaints of increasing shortness of breath. The patient claims that the shortness of breath has been going on for the last one week, which has been progressively getting worse. She grades the shortness of breath as 9/10 in intensity which gets aggravated on ambulation, partially relieved with rest, and she has been taking nebulizer treatment at home without much help. Also, complains of having cough with sputum production which was initially white in color and currently yellow in color. Denies any ongoing chest pains. No abdominal pain, no nausea, no vomiting, but complains of having loose stools in the last 2 to 3 days. No sick contacts. No recent travel. No swelling to her extremities. The patient denied any history of chest pains on exertion but has dyspnea on exertion. No history of orthopnea or paroxysmal nocturnal dyspnea. The patient denied any history of hematemesis, hematochezia, or melenic stools. Normal bowel and bladder habits, otherwise. REVIEW OF SYSTEMS: A complete review of systems including skin; ear, nose, and throat; cardiovascular system; respiratory system; gastrointestinal system; genitourinary system; hematology; oncology; neurology; allergy; immunology; constitutional were all evaluated and were negative except for the above-said notes. PAST MEDICAL HISTORY: Significant for: 1. Hypertension. 2. Hyperlipidemia. 3. Atrial fibrillation, status post radiofrequency ablation of the AV node. 4. Status post pacemaker placement. 5. Osteoporosis. 6. Chronic obstructive pulmonary disease. 7. Abdominal aortic aneurysm. 8. Pulmonary hypertension. 9. QT prolongation. PAST SURGICAL HISTORY: Significant for colonoscopy. FAMILY HISTORY: Significant for diabetes, cancer, and aneurysm in her mother; cancer in her father; thyroid disease in her sister; and diabetes in her brother. SOCIAL HISTORY: The patient had history of smoking in the past, quit in 2010. No history of alcohol intake. ALLERGIC HISTORY: The patient noted to have allergies to codeine, quinolones, macrolides, and ketolides due to prolonged QT interval. MEDICATIONS: Home medications include: 1. Xarelto 20 mg daily. 2. Pulmicort nebulizer two times a day. 3. Home oxygen as needed. 4. Proventil inhalation every 4 hours as needed. 5. Fluticasone daily as needed. PHYSICAL EXAMINATION: Vital Signs: Temperature of 98.4, pulse of 77, blood pressure 120/97, respiratory rate of 20, and saturating at 95% on 3 L of oxygen. General Appearance: The patient is well oriented to time, place, and person. Follows commands spontaneously. Cardiovascular System: S1 and S2 heard with normal intensity. No gallops. Respiratory System: Mild wheeze bilaterally at the bases. No crepitations. Abdomen: Soft. Bowel sounds positive. Nontender. No rigidity. Extremities: No edema in bilateral lower extremities. Neurology: No gross focal neurological deficits. LABORATORY DATA: 1. WBC 10, hemoglobin 14.1, hematocrit 42.7, platelet count 217. 2. INR 1. 3. Sodium 142, potassium 3.9, chloride 119, bicarb 24, BUN 14, creatinine 0.7, glucose 110. 4. BNP 106. ASSESSMENT: 1. Acute chronic obstructive pulmonary disease exacerbation. 2. Acute hypoxic respiratory failure. 3. Possible pneumonia. 4. Hypertension. 5. Hyperlipidemia. 6. Atrial fibrillation, status post radiofrequency ablation of the AV node and pacemaker placement. PLAN: 1. Acute COPD exacerbation. The patient noted to have wheeze and increasing shortness of breath. She will be admitted to the hospital. We will have her on nebulizer treatment with DuoNeb and Pulmicort nebulizers. We will empirical start her on IV antibiotics and IV steroids, and we will closely follow. 2. Acute hypoxic respiratory failure. The patient is requiring 2 to 3 L of nasal cannula oxygen to maintain a saturation of 95%. We will continue the same. 3. Hypertension. The patient's blood pressure seems to be in acceptable range. She is not on any antihypertensive medications for now. We will closely follow. 4. History of atrial fibrillation. She is status post radiofrequency ablation. She is on chronic anticoagulation with Xarelto. Continue the same. 5. Possible pneumonia. The patient will be started on IV antibiotics. She has prolonged QT interval. She will be cautious regarding the use of IV antibiotics. 6. DVT prophylaxis. The patient is currently on Xarelto. Continue the same. CODE STATUS: The patient wants to be full code. Discussed with Alondra, ER physician, regarding the plan of care. Reviewed the labs and medications. Discussed with the patient regarding the plan of care. Reviewed the old charts. [facility] /[id number]
[2017-02-23] MEDS: methylPREDNISolone Sodium Succinate 125 MG/2 ML SDV IVPUSH SCH ×2 (14:57→20:04)
[2017-02-23] MEDS: Budesonide 0.5 MG/2 ML Neb Susp NEB SCH (18:30)
[2017-02-23] MEDS: ACLIDINIUM BROMIDE INH SCH (20:14)
[2017-02-24] MEDS: Albuterol/Ipratropium 3.0-0.5 MG/3 ML Neb Soln NEB SCH ×4 (00:45→17:47)
[2017-02-24] MEDS: Piperacillin/Tazobactam 3.375 GM in Sodium Chloride 0.9% 100 ML IV SCH ×4 (00:45→18:01)
[2017-02-24] MEDS: methylPREDNISolone Sodium Succinate 125 MG/2 ML SDV IVPUSH SCH ×3 (05:58→20:59)
[2017-02-24 07:09] LABS: CHLORIDE,CL 107 mmol/L (101-111); SODIUM,NA 139 mmol/L (135-145)
[2017-02-24] MEDS: Budesonide 0.5 MG/2 ML Neb Susp NEB SCH ×2 (07:27→17:47)
[2017-02-24] MEDS: Rivaroxaban 10 MG Tab PO SCH (08:30)
[2017-02-24] MEDS: ACLIDINIUM BROMIDE INH SCH ×2 (08:31→20:58)
--- NOTE | 2017-02-24 14:11 | PN ---
DATE: 02/24/2017 HISTORY OF PRESENT ILLNESS: Mrs. Mariela Silva is a 66-year-old female with a medical history significant for hypertension, hyperlipidemia, history of paroxysmal atrial fibrillation, recently underwent radiofrequency ablation of the AV node, pacemaker placed, chronic obstructive pulmonary disease admitted with increasing shortness of breath and was noted to be in COPD exacerbation. For the last 24 hours, the patient was continued on IV steroids, IV antibiotics, and nebulizer treatment. She responded well to the treatment. She denies any chest pains. Her shortness of breath seems to be improving. She denies any abdominal pain. No nausea. No vomiting. No diarrhea. REVIEW OF SYSTEMS: Cardiovascular, respiratory, gastrointestinal, neurology, constitutional were all evaluated. PHYSICAL EXAMINATION: Vital Signs: Temperature is 97.1, pulse of 93, blood pressure 106/53, respiratory rate 20, saturating at 95% on 2 L of oxygen. General Appearance: The patient is well oriented to time, place, and person. Follows commands spontaneously. Cardiovascular System: S1, S2 heard with normal intensity. No gallops. Respiratory System: Clear to auscultation bilaterally. No wheeze. No crepitations. Abdomen: Soft. Bowel sounds positive. Nontender. No rigidity. Extremities: No edema in bilateral lower extremities. Neurology: No gross focal neurological deficit. MEDICATIONS: Reviewed. Continue with; 1. Tylenol 650 every 4 hours as needed for pain. 2. DuoNeb 3 mL nebulizer q.6h. 3. Pulmicort 0.5 mg nebulizer twice a day. 4. Fluticasone as needed. 5. Milk of magnesia as needed. 6. Methylprednisolone 60 mg IV q.8 hourly. 7. Zofran as needed. 8. Zosyn IV q.6h. 9. Xarelto 20 mg daily. LABORATORY DATA: Reviewed. WBC 20, hemoglobin 13.5, hematocrit 40.9, platelet count 227. Sodium 139, potassium 4.5, chloride 107, bicarb 23, BUN 16, creatinine 0.8, glucose 136. ASSESSMENT: 1. Acute chronic obstructive pulmonary disease exacerbation. 2. Acute hypoxic respiratory failure. 3. Possible pneumonia. 4. Hypertension. 5. Hyperlipidemia. 6. Atrial fibrillation. PLAN: 1. Acute chronic obstructive pulmonary disease exacerbation. The patient is currently on IV methylprednisone and nebulizer treatment. Continue the same. She is also empirically started on IV antibiotics. Continue the same. 2. Possible pneumonia. The patient was complaining of cough with sputum. We started on Zosyn. The patient has history of prolonged QT interval, so we had to pick Zosyn for that as we could not use any macrolide or fluoroquinolone. 3. Acute hypoxic respiratory failure, seems to be resolved. The patient was requiring nasal cannula oxygen at the time of admission. 4. Hypertension, seems to be in acceptable range. Try to avoid any hypotensive episodes. 5. Atrial fibrillation, rate well controlled. Continue with Xarelto. 6. Possible discharge in a.m. if she remains hemodynamically stable. [facility] /[id number]
[2017-02-24] MEDS: Sodium Chloride 0.9% 10 ML Syringe FLUSH PRN (20:59)
[2017-02-25] MEDS: Albuterol/Ipratropium 3.0-0.5 MG/3 ML Neb Soln NEB SCH ×4 (00:19→17:40)
[2017-02-25] MEDS: Piperacillin/Tazobactam 3.375 GM in Sodium Chloride 0.9% 100 ML IV SCH ×5 (00:20→23:55)
[2017-02-25] MEDS: Sodium Chloride 0.9% 10 ML Syringe FLUSH PRN ×7 (00:21→23:53)
[2017-02-25] MEDS: methylPREDNISolone Sodium Succinate 125 MG/2 ML SDV IVPUSH SCH (05:23)
[2017-02-25] MEDS: Budesonide 0.5 MG/2 ML Neb Susp NEB SCH ×2 (07:22→16:59)
[2017-02-25] MEDS: Rivaroxaban 10 MG Tab PO SCH (08:25)
[2017-02-25] MEDS: ACLIDINIUM BROMIDE INH SCH ×2 (08:27→20:18)
[2017-02-25] MEDS: predniSONE 20 MG Tab PO SCH (10:42)
--- NOTE | 2017-02-25 12:06 | PN ---
DATE: 02/25/2017 SUBJECTIVE: Mrs. Mariela Silva is a 66-year-old female with medical history significant for hypertension, hyperlipidemia, paroxysmal atrial fibrillation status post radiofrequency ablation of the AV node, status post pacemaker placed, and chronic obstructive pulmonary disease admitted to the hospital with complaints of increasing shortness of breath and noted to be in COPD exacerbation. For the last 24 hours, the patient denies any complaints of chest pains. Shortness of breath. No abdominal pain. No nausea. No vomiting. Her shortness of breath has improved from the time of admission. She denies any abdominal pain. REVIEW OF SYSTEMS: Cardiovascular, respiratory, gastrointestinal, neurology, and constitutional were all evaluated. PHYSICAL EXAMINATION: Vital Signs: Temperature of 97.8, pulse of 84, blood pressure 104/54, respiratory rate of 20, and saturating at 96% on room air. General Appearance: Patient is well oriented to time, place, and person. Follows commands spontaneously. Cardiovascular System: S1 and S2 heard with normal intensity. No gallops. Respiratory System: Clear to auscultation bilaterally. No wheeze. No crepitations. Abdomen: Soft. Bowel sounds positive. Nontender. No rigidity. Extremities: No edema bilateral lower extremities. Neurological: No gross focal neurological deficits. MEDICATIONS: 1. Continue Tylenol 650 every 4 hours as needed for pain. 2. DuoNeb 3 mL nebulizer every 6 hours. 3. Pulmicort 0.5 mg nebulizer twice a day. 4. Docusate sodium 100 mg twice a day as needed. 5. Flonase. 6. Milk of magnesia 30 mL q.12 hourly. 7. Zosyn IV q.6 hours. 8. Prednisone 20 mg daily. 9. Xarelto 20 mg daily. LABORATORY DATA: Reviewed. The patient noted to have abnormal TSH at 0.22 on admission. Ordered for T3-T4. ASSESSMENT: 1. Acute chronic obstructive pulmonary disease exacerbation. 2. Acute hypoxic respiratory failure. 3. Possible pneumonia. 4. Hypertension. 5. Hyperlipidemia. 6. Atrial fibrillation. 7. Abnormal TSH. PLAN: 1. Acute COPD exacerbation, seems to be much improved. Continue with nebulizer treatment with DuoNeb and Pulmicort nebulizer. We will switch her to oral prednisone at this time, 20 mg and we will closely follow. 2. Possible pneumonia. The patient is started on IV antibiotic with Zosyn. Her cough with sputum has resolved. We will closely monitor the patient. So far cultures remained negative. 3. Acute hypoxic respiratory failure, seems to be resolved. The patient is able to saturate well on room air. 4. Hypertension. Avoid any hypotensive episodes. 5. Atrial fibrillation. Rate well controlled. 6. Chronic anticoagulation. Continue with the Xarelto. 7. Abnormal TSH. She is noted to have low TSH level at this time. Ordered for T3 and T4. We will follow with the reports. 8. Possible discharge in a.m. if she remains hemodynamically stable. [facility] /[id number]
--- NOTE | 2017-02-25 12:15 | EKG ---
02/23/2017 - CONSTANZA SAPP - FINDINGS: A 12-lead EKG shows atrial fibrillation with a heart rate of 75. Right bundle-branch block noted. No significant ST elevation or ST depression noted. Nonspecific ST-T wave changes noted on leads V4 and V5. [facility] /[id number]
[2017-02-26] MEDS: Sodium Chloride 0.9% 10 ML Syringe FLUSH PRN ×2 (00:37→06:24)
[2017-02-26] MEDS: Albuterol/Ipratropium 3.0-0.5 MG/3 ML Neb Soln NEB SCH ×3 (00:56→13:25)
[2017-02-26] MEDS: Piperacillin/Tazobactam 3.375 GM in Sodium Chloride 0.9% 100 ML IV SCH (05:43)
[2017-02-26 07:23] LABS: CHLORIDE,CL 106 mmol/L (101-111); SODIUM,NA 140 mmol/L (135-145)
[2017-02-26] MEDS: Budesonide 0.5 MG/2 ML Neb Susp NEB SCH (07:49)
[2017-02-26] MEDS: predniSONE 20 MG Tab PO SCH (08:18)
[2017-02-26] MEDS: ACLIDINIUM BROMIDE INH SCH (08:19)
[2017-02-26] MEDS: Rivaroxaban 10 MG Tab PO SCH (08:19)
[2017-02-26 11:56] VITALS: BP 127/74
--- NOTE | 2017-02-27 06:56 | DISCH ---
ADMITTING DIAGNOSES: 1. Acute chronic obstructive pulmonary disease exacerbation. 2. [id number] hypoxic respiratory failure. 3. Possible bronchitis. DISCHARGE DIAGNOSES: 1. Acute chronic obstructive pulmonary disease exacerbation, resolved. 2. [id number] hypoxic respiratory failure, resolved. 3. Acute bronchitis, resolved with IV antibiotics. HISTORY OF PRESENTING ILLNESS: Mrs. Shira Sierra is a 66-year-old female with medical history significant for hypertension, hyperlipidemia, history of paroxysmal atrial fibrillation, on chronic anticoagulation, status post radiofrequency ablation of the AV node, pacemaker placement, history of chronic obstructive pulmonary disease, admitted to the hospital with complaints of increasing shortness of breath and was noted to be in COPD exacerbation with possible acute bronchitis versus early pneumonia process. The patient was also noted to be in [id number] hypoxic respiratory failure. The patient was admitted to the hospital, was treated with IV antibiotics, IV methylprednisone and nebulizer treatment. She responded well to the treatment. She also had her TSH checked which was lower range, so we did a free T3-T4 which are within normal limits, so no indication for any thyroid replacement treatment at this time. She responded well to that treatment. She remained hemodynamically stable on this admission. She is discharged home in stable condition. She is advised to follow with her primary care physician in the next 1 week of time. She is prescribed oral antibiotic Bactrim for next 5 days and also tapered dose of prednisone at the time of discharge. She will continue with the inhalation treatment as scheduled. DISCHARGE MEDICATIONS: Include: 1. Aclidinium bromide 1 puff inhalation twice a day. 2. Albuterol 1 dose inhalation every 4 hours as needed for shortness of breath. 3. Albuterol 2 puffs inhalation every 4 hours. 4. Fluticasone 1 spray in nostril as needed for allergies. 5. Magnesium 400 mg daily. 6. Prednisone tapered dose from 20 to 5 mg. 7. Rivaroxaban 1 tablet daily. 8. Bactrim 1 tablet twice a day for next 5 days. PHYSICAL EXAMINATION: Vital Signs: On the day of discharge, vitals; temperature of 98.3, pulse of 79, blood pressure 121/70, respiratory rate of 20, saturating at 95% on room air. General Appearance: The patient is well oriented to time, place, and person. Follows commands spontaneously. Cardiovascular System: S1, S2 heard with normal intensity. No gallops. Respiratory System: Clear to auscultation bilaterally. No wheeze. No crepitations. Abdomen: Soft. Bowel sounds positive. Nontender. No rigidity. Extremities: No edema of bilateral lower extremities. Neurology: No gross focal neurological deficits. CONDITION ON ADMISSION: Poor. CONDITION ON DISCHARGE: Stable. ACTIVITY: As tolerated. DIET: Cardiac healthy diet. FOLLOWUP: Follow with primary care physician in the next 1 week of time. I spent over 35 minutes of time in evaluating and treating this patient and discharge coordination. [facility] /[id number]
== END 2017-02-26 13:25 | disposition home or self-care (01) | DRG 189 ==
LOC: DL.ED 04:36 → UNDOADMIN 06:34 → DL.MS 06:34
PROVIDERS: ADMIT Internal Medicine; ATTEND Internal Medicine
DX: J96.21 Acute and chronic respiratory failure with hypoxia (principal); J44.0 Chronic obstructive pulmonary disease with (acute) lower respiratory infection; J44.1 Chronic obstructive pulmonary disease with (acute) exacerbation; J20.9 Acute bronchitis, unspecified; I48.2 Chronic atrial fibrillation; Z95.0 Presence of cardiac pacemaker; H54.7 Unspecified visual loss; I71.4 Abdominal aortic aneurysm, without rupture; I27.20 Pulmonary hypertension, unspecified; K21.9 Gastro-esophageal reflux disease without esophagitis; M81.0 Age-related osteoporosis without current pathological fracture; Z87.891 Personal history of nicotine dependence; E78.5 Hyperlipidemia, unspecified; Z88.5 Allergy status to narcotic agent; Z88.8 Allergy status to other drugs, medicaments and biological substances; Z79.01 Long term (current) use of anticoagulants; Z99.81 Dependence on supplemental oxygen; Z79.899 Other long term (current) drug therapy; R94.6 Abnormal results of thyroid function studies
CPT/HCPCS: 36415; 36600; 71010; 80048; 80053; 82553; 82803; 83735; 83880; 84439; 84443; 84481; 84484; 85025; 85027; 85610; 87070; 87205; 93005; 94010; 94640; 96361; 96374; 96375; 99285; A9270-GY; J0696; J2543; J2930; J7030; J7050; J7620-GY

== ENCOUNTER 2017-09-15 00:39 | Inpatient (IN) | payer OTHER, MEDICARE ==
[2017-09-15] MEDS ORDERED: Albuterol/Ipratropium 3.0-0.5 MG/3 ML Neb Soln NEB ONE (01:40)
--- NOTE | 2017-09-15 02:15 | EDM.PDOC ---
ED HPI GENERAL MEDICAL PROBLEM - General Chief Complaint: Respiratory Problem Stated Complaint: BREATHING ISSUES [id number] Time Seen by Provider: 09/15/17 01:50 Source of Information: Reports: Patient History Limitations: Reports: No Limitations - History of Present Illness INITIAL COMMENTS - FREE TEXT/NARRATIVE: ED ambulatory with c/o SOB starting 2 weeks ago. Has been seen at S x 2. Has O2 at home , had not been using until this week. Unable to tolerate much activity. occasional cough. No chest pain or swelling. Hx COPD. 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 Treatments, Other Medication(s) Other Treatments CONTRACT RUNNER: prednisone for 2 days - Related Data Allergies Allergy/AdvReac Type Severity Reaction Status Date / Time codeine Allergy Cannot Verified 09/15/17 03:58 Remember Macrolide Antibiotics AdvReac Severe Tachycardia Verified 09/15/17 03:58 Quinolones AdvReac Severe Tachycardia Verified 09/15/17 03:58 Home Meds: Home Meds Albuterol Sulfate 1 dose INH Q4H PRN 08/30/14 [History] Albuterol [Proventil HFA] 2 puff INH Q4H PRN 08/30/14 [History] Rivaroxaban [Xarelto] 20 mg PO DAILY 08/30/14 [History] Aclidinium Falcon [Tudorza Pressair] 2 puff INH BID 02/28/16 [History] Prednisone [IMW: Prednisone] 5 mg PO DAILY #3 tab 02/26/17 [Rx] Aclidinium Falcon [Tudorza Pressair] 400 mcg IH BID 09/15/17 [History] Fluticasone Propionate [Flonase] 1 spray NS DAILY 09/15/17 [History] Triamcinolone Acetonide [Kenalog 0.1% Crm] 1 applic TOP BID PRN 09/15/17 [ History] Past Medical History HEENT History: Reports: Impaired Vision Other HEENT History: WEARS CORRECTIVE LENS Cardiovascular History: Reports: Afib, Heart Murmur, High Cholesterol Other Cardiovascular History: ABDOMINAL AORTIC ANEURYSM. PULMONARY HYPERTENSION. DIASTOLIC DYSFUNCTION. QT PROLONGATION. 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: Musculoskeletal History: Reports: Osteoporosis Neurological History: Reports: None Psychiatric History: Reports: None Endocrine/Metabolic History: Reports: Osteoporosis Hematologic History: Reports: None Immunologic History: Reports: None Oncologic (Cancer) History: Reports: None Dermatologic History: Reports: None - Infectious Disease History Infectious Disease History: Reports: None - Past Surgical History Female Surgical History: Reports: Section Social & Family History - Family History Family Medical History: Noncontributory - Tobacco Use Smoking Status *Q: Unknown Ever Smoked Second Hand Smoke Exposure: No - Caffeine Use Caffeine Use: Reports: Other Other Caffeine Use: patient states that she occasionally has decaf coffee in the mornings - Recreational Drug Use Recreational Drug Use: No - Living Situation & Occupation Living situation: Reports: with Family Occupation: Employed ED ROS GENERAL - Review of Systems Review Of Systems: See Below Constitutional: Reports: Malaise. Denies: Fever, Chills HEENT: Reports: No Symptoms Respiratory: Reports: Shortness of Breath, Wheezing, Cough. Denies: Sputum Cardiovascular: Reports: No Symptoms, Dyspnea on Exertion GI/Abdominal: Reports: No Symptoms : Reports: No Symptoms Musculoskeletal: Reports: No Symptoms Skin: Reports: No Symptoms Neurological: Reports: No Symptoms ED EXAM, GENERAL - Physical Exam Exam: See Below Exam Limited By: No Limitations General Appearance: Alert, Mild Distress Eye Exam: Bilateral Eye: EOMI Ears: Normal External Exam Nose: Normal Inspection Throat/Mouth: Normal Inspection Head: Atraumatic, Normocephalic Neck: Normal Inspection, Full Range of Motion Respiratory/Chest: Decreased Breath Sounds, Wheezing (bilateral throughout) Cardiovascular: Normal Peripheral Pulses, Regular Rate, Rhythm (paced) GI/Abdominal: Normal Bowel Sounds, Soft Back Exam: Normal Inspection, Full Range of Motion Extremities: Normal Inspection Neurological: Alert, Oriented, Normal Cognition Course - Vital Signs Last Recorded V/S: Last Vital Signs Temp 98.5 F 09/15/17 03:55 Pulse 102 H 09/15/17 03:55 Resp 20 09/15/17 03:55 BP 112/89 09/15/17 03:55 Pulse Ox 94 L 09/15/17 03:55 - Orders/Labs/Meds Orders: Active Orders 24 hr Category Date Time Status CXR [Chest 2V] [CR] Urgent Exams 09/15/17 01:38 Taken Medication Orders Albuterol (Proventil Neb Soln) 2.5 mg NEB Q2H PRN PRN Reason: shortness of breath/wheezing Albuterol/Ipratropium (Duoneb 3.0-0.5 Mg/3 Ml) 3 ml NEB Q4H [facility] Last Admin: 09/15/17 03:35 Dose: Heparin Sodium (Porcine) (Heparin Sodium) 5,000 units SUBCUT Q8HR [facility] Last Admin: 09/15/17 05:47 Dose: 5,000 units Sodium Chloride (Normal Saline) 1,000 mls @ 50 mls/hr IV ASDIRECTED [facility] Last Admin: 09/15/17 03:48 Dose: 50 mls/hr Doxycycline Hyclate 100 mg/ (Sodium Chloride) 100 mls @ 100 mls/hr IV Q12HR DOTTIE Ondansetron HCl (Zofran) 4 mg IVPUSH Q6H PRN PRN Reason: Nausea/Vomiting Labs: Laboratory Tests 09/15/17 09/15/17 09/15/17 Range/Units 01:50 01:50 01:50 WBC 9.7 (5.0-10.0) 10^3/uL RBC 4.43 (4.2-5.4) 10^6/uL Hgb 13.0 (12.0-16.0) g/dL Hct 40.6 (37.0-47.0) % MCV 91.6 (80-100) fL MCH 29.3 (27.0-34.0) pg MCHC 32.0 L (33.0-35.0) g/dL Plt Count 238 (150-450) 10^3/uL Neut % (Auto) 51.8 (42.2-75.2) % Lymph % (Auto) 24.1 (20.5-50.1) % [place] % (Auto) 10.4 H (2-8) % Eos % (Auto) 13.2 H (1.0-3.0) % Baso % (Auto) 0.5 (0.0-1.0) % D-Dimer, Quantitative < 100 (0-400) ng/mL Sodium 139 (135-145) mmol/L Potassium 3.6 (3.6-5.0) mmol/L Chloride 105 (101-111) mmol/L Carbon Dioxide 26.0 (21.0-31.0) mmol/L Anion Gap 11.6 BUN 18 (7-18) mg/dL Creatinine 0.8 (0.6-1.3) mg/dL Est Cr Clr Drug Dosing 63.88 mL/min Estimated GFR (MDRD) > 60 BUN/Creatinine Ratio 22.50 Glucose 100 (74-105) mg/dL Calcium 9.2 (8.4-10.2) mg/dl Total Bilirubin 1.0 (0.2-1.0) mg/dL AST 19 (10-42) IU/L ALT 19 (10-60) IU/L Alkaline Phosphatase 56 (42-121) IU/L Troponin I < 0.02 (0.00-0.02) ng/ml B-Natriuretic Peptide 35 (0-100) pg/ml Total Protein 7.0 (6.7-8.2) g/dl Albumin 4.0 (3.2-5.5) g/dl Globulin 3.0 Albumin/Globulin Ratio 1.33 Meds: Medications Generic Name Dose Route Start Last Admin Trade Name Freq PRN Reason Stop Dose Admin Albuterol 2.5 mg 09/15/17 02:52 Proventil Neb Soln NEB Q2H PRN shortness of breath/wheezing Albuterol/Ipratropium 3 ml 09/15/17 03:00 09/15/17 03:35 Duoneb 3.0-0.5 Mg/3 Ml NEB Not Given Q4H DOTTIE Heparin Sodium (Porcine) 5,000 units 09/15/17 06:00 09/15/17 05:47 Heparin Sodium SUBCUT 5,000 units Q8HR DOTTIE Administration Sodium Chloride 1,000 mls @ 50 mls/hr 09/15/17 03:00 09/15/17 03:48 Normal Saline IV 50 mls/hr ASDIRECTED DOTTIE Administration Doxycycline Hyclate 100 mg/ 100 mls @ 100 mls/hr 09/15/17 09:00 Sodium Chloride IV Q12HR DOTTIE Ondansetron HCl 4 mg 09/15/17 02:52 Zofran IVPUSH Q6H PRN Nausea/Vomiting Discontinued Medications Generic Name Dose Route Start Last Admin Trade Name Freq PRN Reason Stop Dose Admin Albuterol 2.5 mg 09/15/17 03:10 09/15/17 03:17 Proventil Neb Soln NEB 09/15/17 03:11 2.5 mg ONETIME ONE Administration Albuterol/Ipratropium 3 ml 09/15/17 01:40 09/15/17 02:09 Duoneb 3.0-0.5 Mg/3 Ml NEB 09/15/17 01:41 3 ml ONETIME ONE Administration Methylprednisolone Sodium Succinate 125 mg 09/15/17 02:22 09/15/17 02:56 Solu-Medrol IVPUSH 09/15/17 02:23 125 mg ONETIME ONE Administration - Re-Assessments/Exams Free Text/Narrative Re-Assessment/Exam: 09/15/17 02:56 Mild improvement following neb. Improved air exhange. Saturations remain 93-94 Dr Dixon HERNANDEZ agree to admit [facility]. Departure - Departure Time of Disposition: 03:15 Disposition: Admitted As Inpatient 66 Condition: Good Clinical Impression: COPD exacerbation - Discharge Information - My Orders Last 24 Hours: My Active Orders 09/15/17 01:38 CXR [Chest 2V] [CR] Urgent - Assessment/Plan Last 24 Hours: My Active Orders 09/15/17 01:38 CXR [Chest 2V] [CR] Urgent
[2017-09-15 02:16] LABS: ANION GAP 11.6; CHLORIDE,CL 105 mmol/L (101-111); SODIUM,NA 139 mmol/L (135-145)
[2017-09-15] MEDS ORDERED: methylPREDNISolone Sodium Succinate 125 MG/2 ML SDV IVPUSH ONE (02:22)
[2017-09-15] MEDS ORDERED: Ondansetron 4 MG/2 ML SDV IVPUSH PRN (02:52)
[2017-09-15] MEDS ORDERED: Sodium Chloride 0.9% 1,000 ML IV SCH (03:00)
[2017-09-15] MEDS ORDERED: Albuterol 0.083% 2.5 MG/3 ML Neb Soln NEB ONE (03:10)
[2017-09-15] MEDS: Albuterol/Ipratropium 3.0-0.5 MG/3 ML Neb Soln NEB SCH ×7 (03:35→22:48)
[2017-09-15] MEDS: Heparin Sodium 5,000 Units/ML Vial SUBCUT SCH ×3 (05:47→22:02)
[2017-09-15] MEDS: Doxycycline 100 MG in Sodium Chloride 0.9% 100 ML IV SCH ×2 (08:53→22:02)
[2017-09-15] MEDS ORDERED: Albuterol/Ipratropium 3.0-0.5 MG/3 ML Neb Soln ONE (11:33)
--- NOTE | 2017-09-15 11:41 | PCM.HP ---
H&P History of Present Illness - General Date of Service: 09/15/17 Admit Problem/Dx: Admission Diagnosis/Problem Admission Diagnosis/Problem Shortness of breath Source of Information: Patient History Limitations: Reports: No Limitations - History of Present Illness Initial Comments - Free Text/Narative: The patient is a 67-year-old female with medical historyOf pulmonary hypertension, COPD, atrial fibrillation, and chronic anticoagulation with 0 Route toe. The patient presented to the emergency room with complaint of shortness of breath which has been going on for the past 2 weeks. Initially, it was mild but has gradually worsened over time. She is short of breath at rest but markedly worse with any form of activity. Her exercise tolerance has been markedly diminished. Patient has been coughing and it is productive occasionally of light yellowish sputum. She denies having fever or chills. Denies nausea or vomiting. Has not been using bronchodilators at home. She stated that she was advised not to use any of those. - Related Data Allergies/Adverse Reactions: Allergies Allergy/AdvReac Type Severity Reaction Status Date / Time codeine Allergy Cannot Verified 09/15/17 03:58 Remember Macrolide Antibiotics AdvReac Severe Tachycardia Verified 09/15/17 03:58 Quinolones AdvReac Severe Tachycardia Verified 09/15/17 03:58 Home Medications: Home Meds Albuterol Sulfate 1 dose INH Q4H PRN 08/30/14 [History] Albuterol [Proventil HFA] 2 puff INH Q4H PRN 08/30/14 [History] Rivaroxaban [Xarelto] 20 mg PO DAILY 08/30/14 [History] Aclidinium [place] [Tudorza Pressair] 2 puff INH BID 02/28/16 [History] Prednisone [IMW: Prednisone] 5 mg PO DAILY #3 tab 02/26/17 [Rx] Aclidinium [place] [Tudorza Pressair] 400 mcg IH BID 09/15/17 [History] Fluticasone Propionate [Flonase] 1 spray NS DAILY 09/15/17 [History] Triamcinolone Acetonide [Kenalog 0.1% Crm] 1 applic TOP BID PRN 09/15/17 [ History] Past Medical History HEENT History: Reports: Impaired Vision Other HEENT History: WEARS CORRECTIVE LENS Cardiovascular History: Reports: Afib, Heart Murmur, High Cholesterol Other Cardiovascular History: ABDOMINAL AORTIC ANEURYSM. PULMONARY HYPERTENSION. DIASTOLIC DYSFUNCTION. QT PROLONGATION. 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: Musculoskeletal History: Reports: Osteoporosis Neurological History: Reports: None Psychiatric History: Reports: None Endocrine/Metabolic History: Reports: Osteoporosis Hematologic History: Reports: None Immunologic History: Reports: None Oncologic (Cancer) History: Reports: None Dermatologic History: Reports: None - Infectious Disease History Infectious Disease History: Reports: None - Past Surgical History Female Surgical History: Reports: Section Social & Family History - Family History Family Medical History: Noncontributory - Tobacco Use Smoking Status *Q: Unknown Ever Smoked Years of Tobacco use: 40 Packs/Tins Daily: 2 Used Tobacco, but Quit: Yes Month/Year Tobacco Last Used: september 2009 Second Hand Smoke Exposure: No - Caffeine Use Caffeine Use: Reports: Other Other Caffeine Use: patient states that she occasionally has decaf coffee in the mornings - Recreational Drug Use Recreational Drug Use: No - Living Situation & Occupation Living situation: Reports: with Family Occupation: Employed H&P Review of Systems - Review of Systems: Review Of Systems: See Below General: Reports: No Symptoms HEENT: Reports: No Symptoms Pulmonary: Reports: Shortness of Breath, Wheezing Cardiovascular: Reports: Dyspnea on Exertion Gastrointestinal: Reports: No Symptoms Musculoskeletal: Reports: No Symptoms Skin: Reports: No Symptoms Hematologic/Lymphatic: Reports: No Symptoms Exam - Exam Exam: See Below - Vital Signs Vital Signs: Last Vital Signs Temp 36.6 C 09/15/17 11:31 Pulse 81 09/15/17 11:31 Resp 20 09/15/17 11:31 BP 138/68 09/15/17 11:31 Pulse Ox 97 09/15/17 11:31 Weight: 70.035 kg - Exam Quality Assessment: Supplemental Oxygen General: Alert, Oriented, Cooperative HEENT: PERRLA, Hearing Intact, Mucosa Moist & [place], Nares Patent, Normal Nasal Septum, Posterior Pharynx Clear, Conjunctiva Clear, EOMI, EACs Clear, TMs Clear Neck: Supple, Trachea Midline Lungs: Decreased Breath Sounds, Rhonchi, Wheezing Cardiovascular: Regular Rate, Regular Rhythm GI/Abdominal Exam: Normal Bowel Sounds, Soft, Non-Tender, No Organomegaly, No Distention, No Abnormal Bruit, No Mass, Pelvis Stable Back Exam: Normal Inspection, Full Range of Motion, NT Extremities: Normal Inspection, Normal Range of Motion, Non-Tender, No Pedal Edema, Normal Capillary Refill - Patient Data Lab Results Last 24 hrs: Laboratory Results - last 24 hr 09/15/17 09/15/17 09/15/17 Range/Units 01:50 01:50 01:50 WBC 9.7 (5.0-10.0) 10^3/uL RBC 4.43 (4.2-5.4) 10^6/uL Hgb 13.0 (12.0-16.0) g/dL Hct 40.6 (37.0-47.0) % MCV 91.6 (80-100) fL MCH 29.3 (27.0-34.0) pg MCHC 32.0 L (33.0-35.0) g/dL Plt Count 238 (150-450) 10^3/uL Neut % (Auto) 51.8 (42.2-75.2) % Lymph % (Auto) 24.1 (20.5-50.1) % [place] % (Auto) 10.4 H (2-8) % Eos % (Auto) 13.2 H (1.0-3.0) % Baso % (Auto) 0.5 (0.0-1.0) % D-Dimer, Quantitative < 100 (0-400) ng/mL Sodium 139 (135-145) mmol/L Potassium 3.6 (3.6-5.0) mmol/L Chloride 105 (101-111) mmol/L Carbon Dioxide 26.0 (21.0-31.0) mmol/L Anion Gap 11.6 BUN 18 (7-18) mg/dL Creatinine 0.8 (0.6-1.3) mg/dL Est Cr Clr Drug Dosing 63.88 mL/min Estimated GFR (MDRD) > 60 BUN/Creatinine Ratio 22.50 Glucose 100 (74-105) mg/dL Calcium 9.2 (8.4-10.2) mg/dl Total Bilirubin 1.0 (0.2-1.0) mg/dL AST 19 (10-42) IU/L ALT 19 (10-60) IU/L Alkaline Phosphatase 56 (42-121) IU/L Troponin I < 0.02 (0.00-0.02) ng/ml B-Natriuretic Peptide 35 (0-100) pg/ml Total Protein 7.0 (6.7-8.2) g/dl Albumin 4.0 (3.2-5.5) g/dl Globulin 3.0 Albumin/Globulin Ratio 1.33 Result Diagrams: 09/15/17 01:50 09/15/17 01:50 [place] Results Last 24 hrs: Microbiology 09/15/17 03:49 Gram Stain - Final Sputum - Expectorated Problem List Initiated/Reviewed/Updated: Yes Orders Last 24hrs: Active Orders 24 hr Category Date Time Status Patient Status [ADT] Routine ADT 09/15/17 02:52 Active Intake and Output [RC] QSHIFT Care 09/15/17 02:54 Active Oxygen Therapy [RC] PRN Care 09/15/17 02:52 Active RT Aerosol Therapy [RC] ASDIRECTED Care 09/15/17 03:11 Active Up ad [place] [RC] ASDIRECTED Care 09/15/17 02:52 Active VTE/DVT Education [RC] PER UNIT ROUTINE Care 09/15/17 02:52 Active Vital Signs [RC] 08,12,16,20,00,04 Care 09/15/17 02:52 Active Regular Diet [DIET] Diet 09/15/17 Dinner Active CULTURE SPUTUM + SMEAR [RM] Stat Lab 09/15/17 03:49 Ordered Albuterol [Proventil Neb Soln] Med 09/15/17 02:52 Active 2.5 mg NEB Q2H PRN Albuterol/Ipratropium [DuoNeb 3.0-0.5 MG/3 ML] Med 09/15/17 15:00 Active 3 ml NEB Q4HRRT Doxycycline [Vibramycin] 100 mg Med 09/15/17 09:00 Active Sodium Chloride 0.9% [Normal Saline] 100 ml IV Q12HR Heparin Sodium Med 09/15/17 06:00 Active 5,000 units SUBCUT Q8HR Ondansetron [Zofran] Med 09/15/17 02:52 Active 4 mg IVPUSH Q6H PRN Resuscitation Status Routine Resus Stat 09/15/17 02:52 Ordered Medication Orders Albuterol (Proventil Neb Soln) 2.5 mg NEB Q2H PRN PRN Reason: shortness of breath/wheezing Albuterol/Ipratropium (Duoneb 3.0-0.5 Mg/3 Ml) 3 ml NEB Q4HRRT [facility] Heparin Sodium (Porcine) (Heparin Sodium) 5,000 units SUBCUT Q8HR [facility] Last Admin: 09/15/17 05:47 Dose: 5,000 units Doxycycline Hyclate 100 mg/ (Sodium Chloride) 100 mls @ 100 mls/hr IV Q12HR [facility] Last Admin: 09/15/17 08:53 Dose: 100 mls/hr Ondansetron HCl (Zofran) 4 mg IVPUSH Q6H PRN PRN Reason: Nausea/Vomiting Assessment/Plan Comment:: Assessment/plan: Acute exacerbation of COPD The patient does have history of COPD but has not been using her medications at home. She presented with increasing shortness of breath and wheezing over the past 2 weeks. #. Probable acute bronchitis The patient had chest x-ray that did not show a definite infiltrate. She has been coughing and expectorating sputum sometimes. She has been treated as outpatient with oral antibiotics and prednisone but failed to improve. #. Hypoxia Noted to be hypoxic in the emergency room #. Chronic anticoagulation Patient has been on Rivaroxaban #. Atrial fibrillation Rate is controlled Plan: Admit patient to medical floor Send sputum for Gram stain and cultures Comments aggressive nebulization with DuoNeb every 4 hours Albuterol every 2 hours when necessary Intravenous doxycycline every 12 hours Intravenous Solu Medrol 40 mg every 8 hours Anti-medic protocol Discontinue subcutaneous heparin Patient's medical chart was reviewed.
[2017-09-15] MEDS: Acetaminophen 325 MG Tab PO PRN (15:46)
[2017-09-16] MEDS: Albuterol/Ipratropium 3.0-0.5 MG/3 ML Neb Soln NEB SCH ×6 (03:32→22:45)
[2017-09-16] MEDS: Heparin Sodium 5,000 Units/ML Vial SUBCUT SCH ×3 (05:22→21:35)
[2017-09-16] MEDS: Doxycycline 100 MG in Sodium Chloride 0.9% 100 ML IV SCH ×2 (09:52→21:54)
--- NOTE | 2017-09-16 10:42 | PCM.PN ---
- General Info Date of Service: 09/16/17 Subjective Update: Today the patient indicates that she still feels short of breath. She feels improved compared to yesterday. She does have cough which is intermittently worse. It is mostly unproductive. No fever no chills. Continues to require supplemental oxygen - Review of Systems General: Reports: Weakness, Fatigue Pulmonary: Reports: Shortness of Breath, Wheezing Cardiovascular: Reports: No Symptoms Gastrointestinal: Reports: No Symptoms Musculoskeletal: Reports: No Symptoms - Patient Data Vitals - Most Recent: Last Vital Signs Temp 36.6 C 09/16/17 07:40 Pulse 70 09/16/17 07:40 Resp 20 09/16/17 07:40 BP 104/59 L 09/16/17 07:40 Pulse Ox 94 L 09/16/17 07:40 Weight - Most Recent: 70.035 kg I&O - Last 24 Hours: Intake & Output 09/15/17 09/16/17 09/16/17 22:59 06:59 14:59 Intake Total 300 493 500 Output Total 300 Balance 300 493 200 Med Orders - Current: Current Medications Acetaminophen (Tylenol) 650 mg PO Q4H PRN PRN Reason: Pain/Fever Last Admin: 09/15/17 15:46 Dose: 650 mg Albuterol (Proventil Neb Soln) 2.5 mg NEB Q2H PRN PRN Reason: shortness of breath/wheezing Albuterol/Ipratropium (Duoneb 3.0-0.5 Mg/3 Ml) 3 ml NEB Q4HRRT [facility] Last Admin: 09/16/17 07:17 Dose: 3 ml Benzonatate (Tessalon Perles) 200 mg PO TID [facility] Heparin Sodium (Porcine) (Heparin Sodium) 5,000 units SUBCUT Q8HR [facility] Last Admin: 09/16/17 05:22 Dose: 5,000 units Doxycycline Hyclate 100 mg/ (Sodium Chloride) 100 mls @ 100 mls/hr IV Q12HR [facility] Last Admin: 09/16/17 09:52 Dose: 100 mls/hr Ondansetron HCl (Zofran) 4 mg IVPUSH Q6H PRN PRN Reason: Nausea/Vomiting Discontinued Medications Albuterol (Proventil Neb Soln) 2.5 mg NEB ONETIME ONE Stop: 09/15/17 03:11 Last Admin: 09/15/17 03:17 Dose: 2.5 mg Albuterol/Ipratropium (Duoneb 3.0-0.5 Mg/3 Ml) 3 ml NEB ONETIME ONE Stop: 09/15/17 01:41 Last Admin: 09/15/17 02:09 Dose: 3 ml Albuterol/Ipratropium (Duoneb 3.0-0.5 Mg/3 Ml) 3 ml NEB Q4H [facility] Last Admin: 09/15/17 12:58 Dose: Not Given Albuterol/Ipratropium (Duoneb 3.0-0.5 Mg/3 Ml) Confirm Administered Dose 3 ml .ROUTE .STK-MED ONE Stop: 09/15/17 11:34 Last Admin: 09/15/17 12:58 Dose: Not Given Sodium Chloride (Normal Saline) 1,000 mls @ 50 mls/hr IV ASDIRECTED [facility] Last Infusion: 09/15/17 10:24 Dose: 50 mls/hr Methylprednisolone Sodium Succinate (Solu-Medrol) 125 mg IVPUSH ONETIME ONE Stop: 09/15/17 02:23 Last Admin: 09/15/17 02:56 Dose: 125 mg - Exam Quality Assessment: Supplemental Oxygen General: Alert, Oriented, Cooperative HEENT: Pupils Equal, Pupils Reactive, EOMI, Mucous Membr. Moist/[place] Neck: Supple Lungs: Normal Respiratory Effort, Rhonchi, Wheezing Cardiovascular: Regular Rate, Regular Rhythm Extremities: Normal Inspection - Problem List Review Problem List Initiated/Reviewed/Updated: Yes - My Orders Last 24 Hours: My Active Orders 09/15/17 13:39 Flutter Valve Therapy [RT Chest Physiotherapy] [RC] ASDIRECTED IS (RT) [RT Incentive Spirometry] [RC] ASDIRECTED 09/15/17 15:00 Albuterol/Ipratropium [DuoNeb 3.0-0.5 MG/3 ML] 3 ml NEB Q4HRRT 09/15/17 15:23 Acetaminophen [Tylenol] 650 mg PO Q4H PRN 09/15/17 Dinner Regular Diet [DIET] 09/16/17 14:00 Benzonatate [Tessalon Perles] 200 mg PO TID - Plan Plan:: Assessment/plan: Acute exacerbation of COPD The patient does have history of COPD but was not using her medications at home. She presented with increasing shortness of breath and wheezing over the past 2 weeks. #. Probable acute bronchitis The patient had chest x-ray that did not show a definite infiltrate. She has been coughing and expectorating sputum sometimes. Was treated as outpatient with oral antibiotics and prednisone but failed to improve. #. Hypoxia Noted to be hypoxic in the emergency room #. Chronic anticoagulation Patient has been on Rivaroxaban #. Atrial fibrillation Rate is controlled Plan: Patient is still needing supplemental oxygen We'll try to wean off oxygen as tolerated Provide patient with Tessalon Perles 3 times a day Encourage increased ambulation Continue nebulized bronchodilators.
--- NOTE | 2017-09-16 11:37 | EKG ---
09/15/2017 - CONSTANZA SAPP - TIME: 2:02 a.m. FINDINGS: EKG shows ventricular-paced complexes. [facility] /[id number]
[2017-09-16] MEDS: Acetaminophen 325 MG Tab PO PRN (14:32)
[2017-09-16] MEDS: Benzonatate 100 MG Cap PO SCH ×2 (14:33→21:20)
[2017-09-16] MEDS: Sodium Chloride 0.9% 10 ML Syringe FLUSH PRN ×2 (21:37→22:51)
[2017-09-17] MEDS: Albuterol/Ipratropium 3.0-0.5 MG/3 ML Neb Soln NEB SCH ×6 (02:15→22:56)
[2017-09-17] MEDS: Heparin Sodium 5,000 Units/ML Vial SUBCUT SCH (05:11)
[2017-09-17] MEDS: Albuterol 0.083% 2.5 MG/3 ML Neb Soln NEB PRN ×5 (05:22→23:00)
[2017-09-17] MEDS: Doxycycline 100 MG in Sodium Chloride 0.9% 100 ML IV SCH (09:05)
[2017-09-17] MEDS: Benzonatate 100 MG Cap PO SCH ×3 (09:07→21:07)
--- NOTE | 2017-09-17 10:30 | PCM.PN ---
- General Info Date of Service: 09/17/17 Subjective Update: Patient indicates that she is not feeling better today. In fact, she does feel worse. Still has shortness of breath Still coughing a lot. She expectorated a lot of yellowish sputum despondent after use of nebulized albuterol No fever and no chills. No swelling of the extremities. She denies having chest pain - Review of Systems General: Reports: Weakness, Malaise HEENT: Reports: No Symptoms Pulmonary: Reports: Shortness of Breath, Cough Cardiovascular: Reports: Dyspnea on Exertion Gastrointestinal: Reports: No Symptoms Genitourinary: Reports: No Symptoms, Dysuria - Patient Data Vitals - Most Recent: Last Vital Signs Temp 36.6 C 09/17/17 08:00 Pulse 83 09/17/17 08:00 Resp 18 09/17/17 08:00 BP 109/55 L 09/17/17 08:00 Pulse Ox 94 L 09/17/17 08:00 Weight - Most Recent: 70.035 kg I&O - Last 24 Hours: Intake & Output 09/16/17 09/17/17 09/17/17 22:59 06:59 14:59 Intake Total 500 840 240 Output Total 800 1800 Balance -300 -960 240 Med Orders - Current: Current Medications Acetaminophen (Tylenol) 650 mg PO Q4H PRN PRN Reason: Pain/Fever Last Admin: 09/16/17 14:32 Dose: 650 mg Albuterol (Proventil Neb Soln) 2.5 mg NEB Q2H PRN PRN Reason: shortness of breath/wheezing Last Admin: 09/17/17 05:22 Dose: 2.5 mg Albuterol/Ipratropium (Duoneb 3.0-0.5 Mg/3 Ml) 3 ml NEB Q4HRRT [facility] Last Admin: 09/17/17 07:41 Dose: 3 ml Benzonatate (Tessalon Perles) 200 mg PO TID [facility] Last Admin: 09/17/17 09:07 Dose: 200 mg Heparin Sodium (Porcine) (Heparin Sodium) 5,000 units SUBCUT Q8HR [facility] Last Admin: 09/17/17 05:11 Dose: 5,000 units Levofloxacin (Levaquin) 750 mg PO Q24H [facility] Methylprednisolone Sodium Succinate (Solu-Medrol) 40 mg IVPUSH Q8H [facility] Sodium Chloride (Saline Flush) 10 ml FLUSH ASDIRECTED PRN PRN Reason: Keep Vein Open Last Admin: 09/16/17 22:51 Dose: 10 ml Discontinued Medications Albuterol (Proventil Neb Soln) 2.5 mg NEB ONETIME ONE Stop: 09/15/17 03:11 Last Admin: 09/15/17 03:17 Dose: 2.5 mg Albuterol/Ipratropium (Duoneb 3.0-0.5 Mg/3 Ml) 3 ml NEB ONETIME ONE Stop: 09/15/17 01:41 Last Admin: 09/15/17 02:09 Dose: 3 ml Albuterol/Ipratropium (Duoneb 3.0-0.5 Mg/3 Ml) 3 ml NEB Q4H [facility] Last Admin: 09/15/17 12:58 Dose: Not Given Albuterol/Ipratropium (Duoneb 3.0-0.5 Mg/3 Ml) Confirm Administered Dose 3 ml .ROUTE .STK-MED ONE Stop: 09/15/17 11:34 Last Admin: 09/15/17 12:58 Dose: Not Given Sodium Chloride (Normal Saline) 1,000 mls @ 50 mls/hr IV ASDIRECTED [facility] Last Infusion: 09/15/17 10:24 Dose: 50 mls/hr Doxycycline Hyclate 100 mg/ (Sodium Chloride) 100 mls @ 100 mls/hr IV Q12HR [facility] Last Admin: 09/17/17 09:05 Dose: 100 mls/hr Methylprednisolone Sodium Succinate (Solu-Medrol) 125 mg IVPUSH ONETIME ONE Stop: 09/15/17 02:23 Last Admin: 09/15/17 02:56 Dose: 125 mg Ondansetron HCl (Zofran) 4 mg IVPUSH Q6H PRN PRN Reason: Nausea/Vomiting - Exam Quality Assessment: Supplemental Oxygen General: Alert, Oriented Lungs: Decreased Breath Sounds Cardiovascular: Regular Rate, Regular Rhythm GI/Abdominal Exam: Normal Bowel Sounds, Soft, Non-Tender, No Organomegaly, No Distention, No Abnormal Bruit, No Mass, Pelvis Stable Extremities: No Pedal Edema - Problem List Review Problem List Initiated/Reviewed/Updated: Yes - My Orders Last 24 Hours: My Active Orders 09/16/17 14:00 Benzonatate [Tessalon Perles] 200 mg PO TID 09/16/17 16:52 Sodium Chloride 0.9% [Saline Flush] 10 ml FLUSH ASDIRECTED PRN Saline Lock Insert [OM.PC] Routine 09/17/17 10:00 Levofloxacin [Levaquin] 750 mg PO Q24H methylPREDNISolone Sod Succ [Solu-MEDROL] 40 mg IVPUSH Q8H - Plan Plan:: Assessment/plan: Acute exacerbation of COPD The patient does have history of COPD but was not using her medications at home. She presented with increasing shortness of breath and wheezing over the past 2 weeks. #. Probable acute bronchitis chest x-ray that did not show a definite infiltrate. She has been coughing and expectorating sputum sometimes. Was treated as outpatient with oral antibiotics and prednisone but failed to improve. #. Hypoxia Noted to be hypoxic in the emergency room Still needing supplemental oxygen #. Chronic anticoagulation Patient has been on Rivaroxaban #. Atrial fibrillation Rate is controlled Plan: Patient is still having significant wheezing Add Solu Medrol 40 mg every 8 hours Continue Tessalon Perles Try to wean off oxygen as tolerated
[2017-09-17] MEDS: methylPREDNISolone Sodium Succinate 40 MG/1 ML SDV IVPUSH SCH ×2 (10:44→18:26)
[2017-09-17] MEDS: Levofloxacin 500 MG Tab PO SCH (10:44)
[2017-09-17] MEDS ORDERED: ACLIDINIUM BROMIDE INH SCH (11:15)
[2017-09-18] MEDS: methylPREDNISolone Sodium Succinate 40 MG/1 ML SDV IVPUSH SCH ×2 (02:41→10:03)
[2017-09-18] MEDS: Sodium Chloride 0.9% 10 ML Syringe FLUSH PRN (02:41)
[2017-09-18] MEDS: Albuterol/Ipratropium 3.0-0.5 MG/3 ML Neb Soln NEB SCH ×3 (02:44→11:44)
[2017-09-18] MEDS: Albuterol 0.083% 2.5 MG/3 ML Neb Soln NEB PRN ×2 (02:45→07:31)
[2017-09-18] MEDS ORDERED: Fluticasone Propionate Nasal Spray 16 GM Bottle NASBOTH SCH (09:00)
[2017-09-18] MEDS ORDERED: Rivaroxaban 10 MG Tab PO SCH (09:00)
[2017-09-18] MEDS: Levofloxacin 500 MG Tab PO SCH (10:03)
[2017-09-18] MEDS: Benzonatate 100 MG Cap PO SCH (10:03)
--- NOTE | 2017-09-18 10:15 | PCM.DCSUM1 ---
Discharge Summary - Hospital Course Free Text/Narrative:: Admitted for a COPD exacerbation. Improved with treatment. Patient education on COPD done Follow up with PCP Diagnosis: Stroke: No Modified [place] Scale: No Symptoms at All Modified [place] Scale Score: 0 - Discharge Data Discharge Date: 09/18/17 Discharge Disposition: Home, Self-Care 01 Condition: Good - Discharge Diagnosis/Problem(s) (1) COPD exacerbation SNOMED Code(s): 401656577 ICD Code: J44.1 - CHRONIC OBSTRUCTIVE PULMONARY DISEASE W (ACUTE) EXACERBATION Status: Acute Current Visit: Yes - Patient Instructions Diet: Regular Diet as Tolerated Activity: Full Weight Bearing Driving: May Drive Today Showering/Bathing: May Shower - Discharge Plan Prescriptions/Med Rec: Levofloxacin [Levaquin] 750 mg PO Q24H 3 Days #3 tablet Home Medications: Home Meds Albuterol Sulfate 1 dose INH Q4H PRN 08/30/14 [History] Albuterol [Proventil HFA] 2 puff INH Q4H PRN 08/30/14 [History] Rivaroxaban [Xarelto] 20 mg PO DAILY 08/30/14 [History] Prednisone [IMW: Prednisone] 5 mg PO DAILY #3 tab 02/26/17 [Rx] Aclidinium [place] [Tudorza Pressair] 400 mcg IH BID 09/15/17 [History] Fluticasone Propionate [Flonase] 1 spray NS DAILY 09/15/17 [History] Triamcinolone Acetonide [Kenalog 0.1% Crm] 1 applic TOP BID PRN 09/15/17 [ History] Acetaminophen [Tylenol] 650 mg PO Q4H PRN tablet 09/18/17 [Rx] Albuterol [Proventil Neb Soln] 2.5 mg NEB Q2H PRN neb 09/18/17 [Rx] Levofloxacin [Levaquin] 750 mg PO Q24H 3 Days #3 tablet 09/18/17 [Rx] Forms: ED Department Discharge Referrals: PCP,Unobtain [Ordering Only Provider] - - General Info Admission Dx/Problem (Free Text: Admission Diagnosis/Problem Admission Diagnosis/Problem Shortness of breath Subjective Update: Patient feels much better today. SOB and cough are improved. Has been weaned off oxygen by nasal cannula Functional Status: Reports: Pain Controlled - Review of Systems General: Reports: No Symptoms HEENT: Reports: No Symptoms Pulmonary: Reports: No Symptoms Cardiovascular: Reports: No Symptoms Gastrointestinal: Reports: No Symptoms Genitourinary: Reports: No Symptoms Musculoskeletal: Reports: No Symptoms Skin: Reports: No Symptoms - Patient Data Vitals - Most Recent: Last Vital Signs Temp 36.6 C 09/18/17 03:00 Pulse 89 09/18/17 04:37 Resp 20 09/18/17 03:00 BP 110/76 09/18/17 03:00 Pulse Ox 94 L 09/18/17 04:37 Weight - Most Recent: 70.035 kg I&O - Last 24 hours: Intake & Output 09/17/17 09/18/17 09/18/17 22:59 06:59 14:59 Intake Total 300 500 Output Total 200 600 Balance 100 -100 NANCI Results - Last 24 hrs: Microbiology 09/15/17 03:49 Gram Stain - Final Sputum - Expectorated Sputum Culture - Final Yeast Med Orders - Current: Current Medications Acetaminophen (Tylenol) 650 mg PO Q4H PRN PRN Reason: Pain/Fever Last Admin: 09/16/17 14:32 Dose: 650 mg Albuterol (Proventil Neb Soln) 2.5 mg NEB Q2H PRN PRN Reason: shortness of breath/wheezing Last Admin: 09/18/17 07:31 Dose: 2.5 mg Albuterol/Ipratropium (Duoneb 3.0-0.5 Mg/3 Ml) 3 ml NEB Q4HRRT [facility] Last Admin: 09/18/17 07:32 Dose: Not Given Benzonatate (Tessalon Perles) 200 mg PO TID [facility] Last Admin: 09/18/17 10:03 Dose: 200 mg Fluticasone Propionate (Flonase) 0 gm NASBOTH DAILY [facility] Last Admin: 09/18/17 10:03 Dose: 1 spray Levofloxacin (Levaquin) 750 mg PO Q24H [facility] Last Admin: 09/18/17 10:03 Dose: 750 mg Methylprednisolone Sodium Succinate (Solu-Medrol) 40 mg IVPUSH Q8H [facility] Last Admin: 09/18/17 10:03 Dose: 40 mg Rivaroxaban (Xarelto) 20 mg PO DAILY [facility] Last Admin: 09/18/17 10:02 Dose: 20 mg Sodium Chloride (Saline Flush) 10 ml FLUSH ASDIRECTED PRN PRN Reason: Keep Vein Open Last Admin: 09/18/17 02:41 Dose: 10 ml Discontinued Medications Albuterol (Proventil Neb Soln) 2.5 mg NEB ONETIME ONE Stop: 09/15/17 03:11 Last Admin: 09/15/17 03:17 Dose: 2.5 mg Albuterol/Ipratropium (Duoneb 3.0-0.5 Mg/3 Ml) 3 ml NEB ONETIME ONE Stop: 09/15/17 01:41 Last Admin: 09/15/17 02:09 Dose: 3 ml Albuterol/Ipratropium (Duoneb 3.0-0.5 Mg/3 Ml) 3 ml NEB Q4H [facility] Last Admin: 09/15/17 12:58 Dose: Not Given Albuterol/Ipratropium (Duoneb 3.0-0.5 Mg/3 Ml) Confirm Administered Dose 3 ml .ROUTE .STK-MED ONE Stop: 09/15/17 11:34 Last Admin: 09/15/17 12:58 Dose: Not Given Heparin Sodium (Porcine) (Heparin Sodium) 5,000 units SUBCUT Q8HR [facility] Last Admin: 09/17/17 05:11 Dose: 5,000 units Sodium Chloride (Normal Saline) 1,000 mls @ 50 mls/hr IV ASDIRECTED [facility] Last Infusion: 09/15/17 10:24 Dose: 50 mls/hr Doxycycline Hyclate 100 mg/ (Sodium Chloride) 100 mls @ 100 mls/hr IV Q12HR [facility] Last Admin: 09/17/17 09:05 Dose: 100 mls/hr Methylprednisolone Sodium Succinate (Solu-Medrol) 125 mg IVPUSH ONETIME ONE Stop: 09/15/17 02:23 Last Admin: 09/15/17 02:56 Dose: 125 mg Non-Formulary Medication (Aclidinium [place] [Tudorza Pressair]) 2 puff INH BID [facility] Last Admin: 09/17/17 17:14 Dose: Not Given Ondansetron HCl (Zofran) 4 mg IVPUSH Q6H PRN PRN Reason: Nausea/Vomiting - Exam General: Reports: Alert, Oriented HEENT: Reports: Pupils Equal Neck: Reports: Supple Lungs: Reports: Clear to Auscultation Cardiovascular: Reports: Regular Rate, Regular Rhythm GI/Abdominal Exam: Normal Bowel Sounds (Female) Exam: Normal External Exam
[2017-09-18 10:16] VITALS: BP 145/61
== END 2017-09-18 12:13 | disposition home or self-care (01) | DRG 190 ==
LOC: DL.ED 00:39 → DL.MS 02:52 → UNDOADMIN 02:57 → DL.MS 02:57
PROVIDERS: ADMIT Hospitalist; ATTEND Hospitalist
DX: J44.1 Chronic obstructive pulmonary disease with (acute) exacerbation (principal); J96.21 Acute and chronic respiratory failure with hypoxia; I27.20 Pulmonary hypertension, unspecified; I48.2 Chronic atrial fibrillation; Z79.01 Long term (current) use of anticoagulants; H54.7 Unspecified visual loss; E78.00 Pure hypercholesterolemia, unspecified; I71.4 Abdominal aortic aneurysm, without rupture; K21.9 Gastro-esophageal reflux disease without esophagitis; M81.0 Age-related osteoporosis without current pathological fracture; Z88.8 Allergy status to other drugs, medicaments and biological substances; Z79.52 Long term (current) use of systemic steroids; Z79.899 Other long term (current) drug therapy; Z87.891 Personal history of nicotine dependence
CPT/HCPCS: 36415; 71046; 80053; 83880; 84484; 85025; 85379; 87070; 87205; 93005; 94010; 94060; 94640; 94667; 96374; 99285; A9270-GY; J1644; J2920; J2930; J7030; J7050; J7620-GY

== ENCOUNTER 2020-12-14 17:14 | Emergency (ER) | payer MEDICARE, OTHER ==
[2020-12-14 18:19] VITALS: BP 155/67; PULSE 70
[2020-12-14] MEDS ORDERED: Sodium Chloride 0.9% 10 ML Syringe FLUSH PRN (18:22)
--- NOTE | 2020-12-14 18:52 | EDM.PDOC ---
Scribed by Olivia Diggs 12/14/20 [id number] for Giovanni العلي MD <Giovanni العلي - Last Filed: 12/14/20 18:49> ED HPI GENERAL MEDICAL PROBLEM - General Chief Complaint: Abdominal Pain Stated Complaint: SIDE ACHE GOTTEN WORSE SINCE 11AM Time Seen by Provider: 12/14/20 18:18 Source of Information: Reports: Patient, RN, RN Notes Reviewed History Limitations: Reports: No Limitations - History of Present Illness INITIAL COMMENTS - FREE TEXT/NARRATIVE: Patient presents to ED by POV with complaints of right upper abdominal pain that radiates around her abdomen and into her back and chest . This started yesterday but went away. Today the pain returned immediately after eating her lunch. The pain is 8/10 with nausea but no vomiting. Denies diarrhea, constipation or dysuria. Denies any surgical history to her abdomen. Onset: Gradual Duration: Getting Worse Location: Reports: Abdomen Quality: Reports: Ache Severity: Severe Improves with: Reports: None Worsens with: Reports: None Associated Symptoms: Reports: No Other Symptoms - Related Data Allergies Allergy/AdvReac Type Severity Reaction Status Date / Time codeine Allergy Cannot Verified 09/15/17 03:58 Remember Macrolide Antibiotics AdvReac Severe Tachycardia Verified 09/15/17 03:58 Quinolones AdvReac Severe Tachycardia Verified 09/15/17 03:58 Home Meds: Home Meds Albuterol Sulfate 1 dose INH Q4H PRN 08/30/14 [History] Albuterol [Proventil HFA] 2 puff INH Q4H PRN 08/30/14 [History] Rivaroxaban [Xarelto] 20 mg PO DAILY 08/30/14 [History] Prednisone [IMW: Prednisone] 5 mg PO DAILY #3 tab 02/26/17 [Rx] Aclidinium Shell [Tudorza Pressair] 400 mcg IH BID 09/15/17 [History] Fluticasone Propionate [Flonase] 1 spray NS DAILY 09/15/17 [History] Triamcinolone Acetonide [Kenalog 0.1% Crm] 1 applic TOP BID PRN 09/15/17 [History] Acetaminophen [Tylenol] 650 mg PO Q4H PRN tablet 09/18/17 [Rx] Albuterol [Proventil Neb Soln] 2.5 mg NEB Q2H PRN neb 09/18/17 [Rx] levoFLOXacin [Levaquin] 750 mg PO Q24H 3 Days #3 tablet 09/18/17 [Rx] Past Medical History HEENT History: Reports: Impaired Vision Other HEENT History: WEARS CORRECTIVE LENS Cardiovascular History: Reports: Afib, Heart Murmur, High Cholesterol Other Cardiovascular History: ABDOMINAL AORTIC ANEURYSM. PULMONARY HYPERTENSION. DIASTOLIC DYSFUNCTION. QT PROLONGATION. 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: Musculoskeletal History: Reports: Osteoporosis Neurological History: Reports: None Psychiatric History: Reports: None Endocrine/Metabolic History: Reports: Osteoporosis Hematologic History: Reports: None Immunologic History: Reports: None Oncologic (Cancer) History: Reports: None Dermatologic History: Reports: None - Infectious Disease History Infectious Disease History: Reports: None - Past Surgical History Female Surgical History: Reports: Section Social & Family History - Family History Family Medical History: No Pertinent Family History - Caffeine Use Caffeine Use: Reports: Other Other Caffeine Use: patient states that she occasionally has decaf coffee in the mornings - Living Situation & Occupation Living situation: Reports: with Family Occupation: Employed ED ROS GENERAL - Review of Systems Review Of Systems: Comprehensive ROS is negative, except as noted in HPI. ED EXAM, GI/ABD - Physical Exam Exam: See Below Exam Limited By: No Limitations General Appearance: Alert, WD/WN, No Apparent Distress Eyes: Bilateral: Normal Appearance Ears: Normal External Exam, Normal Canal, Hearing Grossly Normal, Normal TMs Nose: Normal Inspection, Normal Mucosa, No Blood Throat/Mouth: Normal Inspection, Normal Lips, Normal Teeth, Normal Gums, Normal Oropharynx, Normal Voice, No Airway Compromise Head: Atraumatic, Normocephalic Neck: Normal Inspection, Supple, Non-Tender, Full Range of Motion Respiratory/Chest: No Respiratory Distress, Lungs Clear, Normal Breath Sounds, No Accessory Muscle Use, Chest Non-Tender Cardiovascular: Normal Peripheral Pulses, Regular Rate, Rhythm, No Edema, No Gallop, No JVD, No Murmur, No Rub GI/Abdominal Exam: Normal Bowel Sounds, Soft, No Organomegaly, No Distention, Tender (right upper quadrant. ). No: Guarding, Rigid, Rebound (Female) Exam: Deferred Rectal (Female) Exam: Deferred Back Exam: Normal Inspection, Full Range of Motion, NT Extremities: Normal Inspection, Normal Range of Motion, Non-Tender, Normal Capillary Refill, No Pedal Edema Neurological: Alert, Oriented, CN II-XII Intact, Normal Cognition, Normal Gait, Normal Reflexes, No Motor/Sensory Deficits Psychiatric: Normal Affect, Normal Mood Skin Exam: Warm, Dry, Intact, Normal Color, No Rash Course - Re-Assessments/Exams Free Text/Narrative Re-Assessment/Exam: 12/14/20 Care of pt transferred to Vasiliy Roe ME[employer]ER at shift change. Departure - Departure Disposition: Home, Self-Care 01 Clinical Impression: Cholelithiasis Qualifiers: Cholelithiasis location: gallbladder Cholecystitis presence: with cholecystitis Cholecystitis acuity: acute Biliary obstruction: without biliary obstruction Qualified Code(s): K80.00 - Calculus of gallbladder with acute cholecystitis without obstruction - Discharge Information Instructions: Cholelithiasis, [id number], Abdominal Pain, Adult, [id number] Forms: ED Department Discharge Additional Instructions: Follow-up with your primary care provider for referral Drink plenty of water Rx: Cephalexin 500 mg 1 orally twice daily for 10 days Follow gallbladder diet Return to the ER with any worsening of symptoms <Sherly Roe - Last Filed: 12/14/20 21:30> Course - Vital Signs Last Recorded V/S: Last Vital Signs Temp 98.9 F 12/14/20 17:56 Pulse 70 12/14/20 17:56 Resp 16 12/14/20 17:56 BP 155/67 H 12/14/20 17:56 Pulse Ox 100 12/14/20 17:56 - Orders/Labs/Meds Orders: Active Orders 24 hr Category Date Time Status Peripheral IV Care [RC] . DIRECTED Care 12/14/20 18:23 Active CULTURE URINE [RM] Stat Lab 12/14/20 17:55 Received Sodium Chloride 0.9% [Saline Flush] Med 12/14/20 18:22 Active 10 ml FLUSH ASDIRECTED PRN Peripheral IV Insertion Adult [OM.PC] Stat Oth 12/14/20 18:23 Ordered Medication Orders Sodium Chloride (Sodium Chloride 0.9% 10 Ml Syringe) 10 ml FLUSH ASDIRECTED PRN PRN Reason: Keep Vein Open Last Admin: 12/14/20 18:31 Dose: 10 ml Documented by: NERY Labs: Laboratory Tests 12/14/20 12/14/20 12/14/20 Range/Units 17:55 18:30 18:30 WBC 10.8 H (5.0-10.0) 10^3/uL RBC 4.52 (4.2-5.4) 10^6/uL Hgb 13.5 (12.0-16.0) g/dL Hct 41.1 (37.0-47.0) % MCV 90.9 (80-100) fL MCH 29.9 (27.0-34.0) pg MCHC 32.8 L (33.0-35.0) g/dL Plt Count 223 (150-450) 10^3/uL Neut % (Auto) 81.8 H (42.2-75.2) % Lymph % (Auto) 9.4 L (20.5-50.1) % [place] % (Auto) 7.4 (2-8) % Eos % (Auto) 1.2 (1.0-3.0) % Baso % (Auto) 0.2 (0.0-1.0) % Sodium 140 (136-145) mmol/L Potassium 4.0 (3.5-5.1) mmol/L Chloride 106 (98-107) mmol/L Carbon Dioxide 24 (21-32) mmol/L Anion Gap 14.0 H (7-13) mEq/L BUN 15 (7-18) mg/dL Creatinine 0.89 (0.55-1.02) mg/dL Est Cr Clr Drug Dosing 52.93 mL/min Estimated GFR (MDRD) > 60 BUN/Creatinine Ratio 16.9 (No establ ref range) Glucose 119 H (70-99) mg/dL Lactic Acid (0.4-2.0) mmol/L Calcium 9.0 (8.5-10.1) mg/dL Total Bilirubin 1.4 H (0.2-1.0) mg/dL AST 49 H (15-37) U/L ALT 37 (14-59) U/L Alkaline Phosphatase 97 (46-116) U/L Total Protein 6.7 (6.4-8.2) g/dL Albumin 3.4 (3.4-5.0) g/dL Globulin 3.3 Albumin/Globulin Ratio 1.0 Amylase 50 (25-115) U/L Lipase 89 (73-393) U/L Urine Color Yellow (YELLOW) Urine Appearance Slightly cloudy (CLEAR) Urine pH 8.5 (5.0-9.0) Ur Specific Ashley 1.015 (1.005-1.030) Urine Protein Negative (NEGATIVE) Urine Glucose (UA) Negative (NEGATIVE) Urine Ketones Trace H (NEGATIVE) Urine Occult Blood Negative (NEGATIVE) Urine Nitrite Negative (NEGATIVE) Urine Bilirubin Negative (NEGATIVE) Urine Urobilinogen 2.0 H (0.2-1.0) mg/dL Ur Leukocyte Esterase Small H (NEGATIVE) Urine RBC Not seen (0-5) /HPF Urine WBC 5-10 H (0-5/HPF) /HPF Ur Epithelial Cells Many H (NOT SEEN) /HPF Urine Bacteria Moderate H (0-FEW/HPF) /HPF /30/ Range/Units 18:30 WBC (5.0-10.0) 10^3/uL RBC (4.2-5.4) 10^6/uL Hgb (12.0-16.0) g/dL Hct (37.0-47.0) % MCV (80-100) fL MCH (27.0-34.0) pg MCHC (33.0-35.0) g/dL Plt Count (150-450) 10^3/uL Neut % (Auto) (42.2-75.2) % Lymph % (Auto) (20.5-50.1) % [place] % (Auto) (2-8) % Eos % (Auto) (1.0-3.0) % Baso % (Auto) (0.0-1.0) % Sodium (136-145) mmol/L Potassium (3.5-5.1) mmol/L Chloride (98-107) mmol/L Carbon Dioxide (21-32) mmol/L Anion Gap (7-13) mEq/L BUN (7-18) mg/dL Creatinine (0.55-1.02) mg/dL Est Cr Clr Drug Dosing mL/min Estimated GFR (MDRD) BUN/Creatinine Ratio (No establ ref range) Glucose (70-99) mg/dL Lactic Acid 1.2 (0.4-2.0) mmol/L Calcium (8.5-10.1) mg/dL Total Bilirubin (0.2-1.0) mg/dL AST (15-37) U/L ALT (14-59) U/L Alkaline Phosphatase (46-116) U/L Total Protein (6.4-8.2) g/dL Albumin (3.4-5.0) g/dL Globulin Albumin/Globulin Ratio Amylase (25-115) U/L Lipase (73-393) U/L Urine Color (YELLOW) Urine Appearance (CLEAR) Urine pH (5.0-9.0) Ur Specific Ashley (1.005-1.030) Urine Protein (NEGATIVE) Urine Glucose (UA) (NEGATIVE) Urine Ketones (NEGATIVE) Urine Occult Blood (NEGATIVE) Urine Nitrite (NEGATIVE) Urine Bilirubin (NEGATIVE) Urine Urobilinogen (0.2-1.0) mg/dL Ur Leukocyte Esterase (NEGATIVE) Urine RBC (0-5) /HPF Urine WBC (0-5/HPF) /HPF Ur Epithelial Cells (NOT SEEN) /HPF Urine Bacteria (0-FEW/HPF) /HPF Meds: Medications Generic Name Dose Route Start Last Admin Trade Name Freq PRN Reason Stop Dose Admin Sodium Chloride 10 ml 12/14/20 18:22 12/14/20 18:31 Sodium Chloride 0.9% 10 Ml Syringe FLUSH 10 ml ASDIRECTED PRN Administration Keep Vein Open Discontinued Medications Generic Name Dose Route Start Last Admin Trade Name Freq PRN Reason Stop Dose Admin Iopamidol 100 ml 12/14/20 19:15 12/14/20 19:47 Iopamidol 612 Mg/Ml 100 Ml Bottle IVPUSH 12/14/20 19:16 75 ml ONETIME ONE Administration - Radiology Interpretation Free Text/Narrative:: Abdomen/Pelvis CT with contrast: [facility] [place] [facility] Final Radiology Report Call: [phone] assistance Online chat: [email or web address] Name: CONSTANZA SAPP Age: 70Years F Date: 12/14/2020 SSN: -- : [id number] Study: CT ABDOMEN PELVIS W CONT Requesting Physician: Sherly Roe Images: [id number] Addl Studies: Provided Clinical History: abdominal pain Contrast: With Contrast Medium: Isovue 300 Contrast Amount: 75 mL Contrast Method: Intravenous (IV) Page 1 of 3 PROCEDURE INFORMATION: Exam: CT Abdomen And Pelvis With Contrast Exam date and time: 12/14/2020 7:24 PM Age: 70 years old Clinical indication: Abdominal pain; Localized; Right TECHNIQUE: Imaging protocol: Computed tomography of the abdomen and pelvis with contrast. Sagittal and coronal reformatted images were created and reviewed. Delayed axial images through the kidneys during the excretory phase were also submitted. Radiation optimization: All CT scans at this facility use at least one of these dose optimization techniques: automated exposure control; mA and/or kV adjustment per patient size (includes targeted exams where dose is matched to clinical indication); or iterative reconstruction. Contrast material: ISOVUE 300; Contrast volume: 75 ml; Contrast route: INTRAVENOUS (IV); COMPARISON: No relevant prior studies available. FINDINGS: Tubes, catheters and devices: Leads from a cardiac pacer in the right atrium and right ventricle. Lungs: Moderate paraseptal and centrilobular emphysematous changes in the visualized lungs. Partially visualized nodule in the left upper lobe has an average measurement of 6 mm (series 2, image 1). Visualized lungs are clear. Pleural spaces: No pleural effusion. Heart: Mild enlargement of the heart. Liver: The liver is unremarkable. Gallbladder and bile ducts: Multiple stones in the gallbladder. No gallbladder wall thickening. No biliary ductal dilatation. Pancreas: The pancreas is unremarkable. No pancreatic ductal dilatation. Spleen: The spleen is unremarkable. Adrenal glands: The right adrenal gland is unremarkable. Indeterminate focus in the left adrenal gland. Hounsfield units show density greater than expected for an adenoma. This measures 1.7 x 1.2 cm (series 2, image 33). Kidneys and ureters: The right and left kidneys are unremarkable. The right and left ureters are unremarkable. Stomach and bowel: Scattered diverticula in the colon. No evidence for diverticulitis. Appendix: The appendix is visualized and is unremarkable. No findings to suggest acute appendicitis. Intraperitoneal space: No free intraperitoneal air. No ascites. No loculated fluid collections to suggest an abscess. Vasculature: Mild atherosclerotic changes in the visualized arteries. Aneurysm of the infrarenal abdominal aorta, measuring up to 4.3 x 3.3 cm (series 2, image 45). No evidence for aneurysm rupture. The aneurysm does not involve the iliac arteries. No evidence for aortic dissection. Hepatic veins, portal veins, splenic vein, and SMV are patent. Lymph nodes: No lymphadenopathy. Urinary bladder: Unremarkable as visualized. Reproductive: The uterus, right ovary, and left ovary are unremarkable. Bones/joints: Degenerative changes in the spine and hips. Soft tissues: No acute abnormality in the extra-abdominal soft tissues. IMPRESSION: 1. No acute abnormality in the abdomen or pelvis. 2. Small infrarenal abdominal aortic aneurysm. No evidence for aneurysm rupture. 3. Cholelithiasis. 4. Indeterminate focus in the left adrenal gland. Consider 12 month follow-up adrenal CT. (Reference: Narcisa) 5. Scattered diverticula in the colon. No evidence for diverticulitis. 6. Partially visualized nodule in the left upper lobe has an average measurement of 6 mm (series 2, image 1). For patients at low risk (minimal or absent history of smoking and of other known risk factors), recommend CT Chest at 3-6 months, then consider CT Chest at 18-24 months. For patients at high risk (history of smoking or of other known risk factors), recommend CT Chest at 3-6 months, then CT Chest at 18-24 months. (Reference: Jillian) 7. Incidental/nonacute findings are listed in the report. COMMENTS: Consistent with the [employer]'s Incidental Findings Committee white paper (J Am Danica Radiol 2017): Any incidental adrenal lesion less than or equal to 1 cm is likely benign. No follow-up imaging is recommended for these lesions per consensus recommendations based on imaging criteria. Further lab evaluation could be pursued if warranted based on clinical findings. REFERENCES: 1. Zoehobita H, et al. Guidelines for Management of Incidental Pulmonary Nodules Detected on CT Images: From the Fleischner Society 2017. Radiology. 2017;284(1):228-243. 2. Narcisa ENGLAND, et al. Management of Incidental Adrenal Masses: A White Paper of the ACR Incidental Findings Committee. J Am Danica Radiol. 2017;14(8):7238-2373. Thank you for allowing us to participate in the care of your patient. Dictated and Authenticated by: Ila Cope MD 12/14/2020 8:41 PM Central Time ([place] & [place] See rad report Departure - Departure Time of Disposition: 21:20 Condition: Good - Discharge Information *PRESCRIPTION DRUG MONITORING PROGRAM REVIEWED*: No *COPY OF PRESCRIPTION DRUG MONITORING REPORT IN PATIENT NISH: No Sepsis Event Note (ED) - Focused Exam Vital Signs: Vital Signs Temp Pulse Resp BP Pulse Ox 12/14/20 17:56 98.9 F 70 16 155/67 H 100 I have read and agree with the documentation that has been completed regarding this visit. By signing this record, I attest that the documentation was completed in my physical presence and is an accurate record of the encounter.
[2020-12-14 18:55] LABS: CHLORIDE,CL 106 mmol/L (98-107); SODIUM,NA 140 mmol/L (136-145)
[2020-12-14] MEDS ORDERED: Iopamidol 612 MG/ML 100 ML Bottle IVPUSH ONE (19:15)
--- NOTE | 2020-12-14 20:41 | CT ---
PROCEDURE INFORMATION: Exam: CT Abdomen And Pelvis With Contrast Exam date and time: 12/14/2020 7:24 PM Age: 70 years old Clinical indication: Abdominal pain; Localized; Right TECHNIQUE: Imaging protocol: Computed tomography of the abdomen and pelvis with contrast. Sagittal and coronal reformatted images were created and reviewed. Delayed axial images through the kidneys during the excretory phase were also submitted. Radiation optimization: All CT scans at this facility use at least one of these dose optimization techniques: automated exposure control; mA and/or kV adjustment per patient size (includes targeted exams where dose is matched to clinical indication); or iterative reconstruction. Contrast material: ISOVUE 300; Contrast volume: 75 ml; Contrast route: INTRAVENOUS (IV); COMPARISON: No relevant prior studies available. FINDINGS: Tubes, catheters and devices: Leads from a cardiac pacer in the right atrium and right ventricle. Lungs: Moderate paraseptal and centrilobular emphysematous changes in the visualized lungs. Partially visualized nodule in the left upper lobe has an average measurement of 6 mm (series 2, image 1). Visualized lungs are clear. Pleural spaces: No pleural effusion. Heart: Mild enlargement of the heart. Liver: The liver is unremarkable. Gallbladder and bile ducts: Multiple stones in the gallbladder. No gallbladder wall thickening. No biliary ductal dilatation. Pancreas: The pancreas is unremarkable. No pancreatic ductal dilatation. Spleen: The spleen is unremarkable. Adrenal glands: The right adrenal gland is unremarkable. Indeterminate focus in the left adrenal gland. Hounsfield units show density greater than expected for an adenoma. This measures 1.7 x 1.2 cm (series 2, image 33). Kidneys and ureters: The right and left kidneys are unremarkable. The right and left ureters are unremarkable. Stomach and bowel: Scattered diverticula in the colon. No evidence for diverticulitis. Appendix: The appendix is visualized and is unremarkable. No findings to suggest acute appendicitis. Intraperitoneal space: No free intraperitoneal air. No ascites. No loculated fluid collections to suggest an abscess. Vasculature: Mild atherosclerotic changes in the visualized arteries. Aneurysm of the infrarenal abdominal aorta, measuring up to 4.3 x 3.3 cm (series 2, image 45). No evidence for aneurysm rupture. The aneurysm does not involve the iliac arteries. No evidence for aortic dissection. Hepatic veins, portal veins, splenic vein, and SMV are patent. Lymph nodes: No lymphadenopathy. Urinary bladder: Unremarkable as visualized. Reproductive: The uterus, right ovary, and left ovary are unremarkable. Bones/joints: Degenerative changes in the spine and hips. Soft tissues: No acute abnormality in the extra-abdominal soft tissues. IMPRESSION: 1. No acute abnormality in the abdomen or pelvis. 2. Small infrarenal abdominal aortic aneurysm. No evidence for aneurysm rupture. 3. Cholelithiasis. 4. Indeterminate focus in the left adrenal gland. Consider 12 month follow-up adrenal CT. (Reference: Narcisa) 5. Scattered diverticula in the colon. No evidence for diverticulitis. 6. Partially visualized nodule in the left upper lobe has an average measurement of 6 mm (series 2, image 1). For patients at low risk (minimal or absent history of smoking and of other known risk factors), recommend CT Chest at 3-6 months, then consider CT Chest at 18-24 months. For patients at high risk (history of smoking or of other known risk factors), recommend CT Chest at 3-6 months, then CT Chest at 18-24 months. (Reference: Jillian) 7. Incidental/nonacute findings are listed in the report. COMMENTS: Consistent with the [employer]'s Incidental Findings Committee white paper (J Am Danica Radiol 2017): Any incidental adrenal lesion less than or equal to 1 cm is likely benign. No follow-up imaging is recommended for these lesions per consensus recommendations based on imaging criteria. Further lab evaluation could be pursued if warranted based on clinical findings. REFERENCES: 1. Jillian Harrell, et al. Guidelines for Management of Incidental Pulmonary Nodules Detected on CT Images: From the Fleischner Society 2017. Radiology. 2017;284(1):228-243. 2. Narcisa ENGLAND, et al. Management of Incidental Adrenal Masses: A White Paper of the ACR Incidental Findings Committee. J Am Danica Radiol. 2017;14(8):2989-8459.
== END 2020-12-14 21:40 | disposition home or self-care (01) ==
LOC: DL.ED 17:14
DX: K80.00 Calculus of gallbladder with acute cholecystitis without obstruction (principal); I48.91 Unspecified atrial fibrillation; E78.00 Pure hypercholesterolemia, unspecified; J44.9 Chronic obstructive pulmonary disease, unspecified; I10 Essential (primary) hypertension; Z88.5 Allergy status to narcotic agent; Z88.8 Allergy status to other drugs, medicaments and biological substances; Z79.01 Long term (current) use of anticoagulants; Z79.899 Other long term (current) drug therapy
CPT/HCPCS: 36415; 74177; 80053; 81001; 81003; 82150; 83605; 83690; 85025; 87086; 87088; 87186; 99284; Q9967

== ENCOUNTER 2022-08-05 01:25 | Emergency (ER) | payer BC, MEDICARE ==
[2022-08-05] MEDS ORDERED: Albuterol/Ipratropium 3.0-0.5 MG/3 ML Neb Soln NEB ONE (02:38)
[2022-08-05] MEDS ORDERED: predniSONE 20 MG Tab PO ONE (02:38)
[2022-08-05] MEDS ORDERED: Azithromycin 250 MG Tab PO ONE (02:40)
[2022-08-05 02:51] VITALS: PULSE 72
[2022-08-05 03:40] VITALS: BP 124/74
== END 2022-08-05 03:38 | disposition home or self-care (01) ==
LOC: DL.ED 01:25
DX: J44.9 Chronic obstructive pulmonary disease, unspecified (principal); I48.91 Unspecified atrial fibrillation; Z87.891 Personal history of nicotine dependence; Z88.5 Allergy status to narcotic agent; Z88.1 Allergy status to other antibiotic agents; Z88.8 Allergy status to other drugs, medicaments and biological substances; Z79.01 Long term (current) use of anticoagulants; Z79.51 Long term (current) use of inhaled steroids; Z95.0 Presence of cardiac pacemaker
CPT/HCPCS: 94640; 99284; A9270; J7512; J7620-GY

== ENCOUNTER 2024-04-24 19:44 | Emergency (ER) | payer BC, OTHER ==
[2024-04-24] MEDS: Albuterol/Ipratropium 3.0-0.5 MG/3 ML Neb Soln NEB ONE (20:11)
[2024-04-24] MEDS: Take Home: Doxycycline 100 MG Cap, 4 Cap Pack PO ONE (20:38)
[2024-04-24 20:43] VITALS: BP 113/91; PULSE 72
== END 2024-04-24 20:43 | disposition home or self-care (01) ==
LOC: DL.ED 19:44
DX: J18.9 Pneumonia, unspecified organism (principal); I48.91 Unspecified atrial fibrillation; I10 Essential (primary) hypertension; J44.89 Other specified chronic obstructive pulmonary disease; Z88.5 Allergy status to narcotic agent; Z88.1 Allergy status to other antibiotic agents; Z88.8 Allergy status to other drugs, medicaments and biological substances; Z79.01 Long term (current) use of anticoagulants; Z79.51 Long term (current) use of inhaled steroids; Z79.899 Other long term (current) drug therapy
CPT/HCPCS: 99284; A9270-GY; J7620-GY